=== PATIENT | female | born 1995 | race Caucasian/White ===

== ENCOUNTER 2020-11-05 10:25 | Emergency (ER) | payer BC, SELFPAY ==
[2020-11-05] VITALS (7 sets, daily range): BP systolic 90–111; BP diastolic 49–64; PULSE 74–93; RESP 14–20; TEMP 36.4; O2SAT 100
[2020-11-05 11:14] LABS: Basophils Percent Auto 0.1 % (0.2-1.2); Eosinophils Percent Auto 0.2 % (0-4.4); Hematocrit 34.8 % (37.0-47.0); Hemoglobin 11.7 g/dL (12.0-15.0); Immature Granulocyte Absolute 0.08 K/mm3 (0.00-0.031); Immature Granulocyte Percent A 0.6 % (0-0.5); Lymphocytes Absolute Auto 1.53 K/mm3 (0.9-3.2); Lymphocytes Percent Auto 10.7 % (18.3-44.2); Mean Corpuscular HGB Conc 33.6 g/dl (32-36); Mean Corpuscular Hemoglobin 30.8 pg (26-34); Mean Corpuscular Volume 91.6 fl (80-100); Mean Platelet Volume 11.3 fl (7.4-10.4); Monocytes Absolute Auto 0.5 K/mm3 (0.1-0.6); Monocytes Percent Auto 3.3 % (2.6-8.5); Neutrophils Absolute Auto 12.2 K/mm3 (1.3-6.7); Neutrophils Percent Auto 85.1 % (45.5-73.1); Platelet Count Result 231 k/mm3 (150-375); Red Cell Distribution Width 13.5 % (11.5-14.5); White Blood Count 14.3 K/mm3 (4.5-10.0)
[2020-11-05 11:28] LABS: Alanine Aminotransferase 26 U/L (4-35); Alkaline Phosphatase 55 U/L (38-126); Anion Gap 8 mmol/L (8-16); Aspartate Amino Transferase 27 U/L (14-36); Bilirubin,Total 0.4 mg/dL (0.2-1.3); Blood Urea Nitrogen 6 mg/dL (7-17); Calcium 9.5 mg/dL (8.4-10.2); Carbon Dioxide 22 mmol/L (22-30); Chloride 108 mmol/L (98-107); Estimated CRCL calculation 157 ml/min; Estimated Glomerular Filt Rate > 60; Glucose 88 mg/dL (65-105); Lipase 39 U/L (23-300); Sodium 138 mmol/L (137-145)
[2020-11-05 11:42] LABS: Add Urine Microscopic? YES; Appearance Urine Cloudy (Clear); Bacteria Urine 1+ /hpf; Bilirubin Urine Negative (Negative); Blood Urine Negative (Negative); Color Urine Yellow (Yellow); Glucose Urine UA Negative (Negative); Ketones Urine Negative (Negative); Leukocyte Esterase Ur Negative LEU/UL (Negative); Mucus Urine Few /lpf; Nitrate Urine Negative (Negative); Protein Urine Negative (Negative); RBC Urine 0-2 /hpf (0-2); Specific Grav Ur 1.013 (1.001-1.035); Squamous Epithelial Cell Urine Many /hpf (Few); Urobilinogen Urine Negative mg/dL (<2.0)
--- NOTE | 2020-11-05 12:17 | ED.DIZZY ---
HPI - Dizziness General Chief Complaint: Dizziness Stated Complaint: low blood pressure, dizzy Time Seen by Provider: 11/05/20 12:16 History of Present Illness HPI Narrative: healthy 25 yo female at 18 weeks gestation presents for light headedness. She reports that she has had multiple near syncopal episodes recently. She has never actually fallen or lost consciousness. She was concerned so she began keeping track of her blood pressure. She has been running around 90/50. She reports that her blood pressure is usually on the low side, but this is lower than usual. She has had some nausea and occasional vomiting with this , but mild. She denies any additional symptoms. Related Data Allergies Allergy/AdvReac Type Severity Reaction Status Date / Time No Known Allergies Allergy Verified 11/05/20 12:11 Review of Systems Review of Systems: All systems reviewed & are unremarkable except as noted in HPI and below Constitutional: Constitutional: Denies chills, Denies fever(s) and Denies weakness Cardiovascular: Cardiovascular: Denies chest pain Respiratory: Respiratory: Denies dyspnea Gastrointestinal: Gastrointestinal: Denies abdominal pain, Denies diarrhea, Reports nausea and Reports vomiting Genitourinary: Genitourinary: Denies abnormal vaginal bleeding, Denies hematuria, Denies dysuria and Denies vaginal discharge Musculoskeletal: Musculoskeletal: Denies back pain Neurologic: Denies confusion, Reports dizziness, Denies syncope, Denies numbness and Denies weakness [facility] Social History Social History Gender identity (if verbalized by the patient): Female Exam Const: General: healthy appearing, no acute distress and alert Orientation/consciousness: patient oriented x3 HENMT: Head: normal to inspection Neck: Neck: normal visual inspection and no lymphadenopathy Resp: Effort & Inspection: normal respiratory effort Auscultation: clear to auscultation bilaterally, no rales, no rhonchi and no wheezes Cardio: Jugular venous distension: no JVD Rate: regular rate Rhythm: regular rhythm Heart sounds: no murmurs GI: Inspection: non-distended GI Palp: Yes Soft to palpation and No Tenderness to palpation present (GI) Skin: General skin exam: normal color and no pallor Neuro: General: patient oriented x3 and moves all extremities Speech: normal speech Extrem: General: no edema Psych: Appearance: well kempt Affect: normal affect Course Vital Signs Vital signs: Vital Signs Temperature 36.4 C L 11/05/20 10:51 Pulse Rate 89 11/05/20 10:51 Respiratory Rate 20 11/05/20 10:51 Blood Pressure 111/64 11/05/20 10:51 Pulse Oximetry 100 11/05/20 10:51 Temperature 36.4 C L 11/05/20 10:51 Pulse Rate 83 11/05/20 16:28 Respiratory Rate 17 11/05/20 16:28 Blood Pressure 99/64 L 11/05/20 16:28 Pulse Oximetry 100 11/05/20 16:28 MDM - Dizziness MDM Narrative Medical decision making narrative: SHe has had minimal change with fluids. Orthostatics were positive. She appears well and labs do not point to any particular concern. Case dicussed with Dr. Mcmahon. He feels she is okay for discharge and can see them in clinic. Medical Records Attestation: I reviewed the patient's medical records. Lab Data Attestation: I reviewed the patient's lab results. Result diagrams: 11/05/20 11:04 11/05/20 11:04 Labs: Lab Results 11/05/20 11/05/20 11/05/20 Range/Units 11:04 11:04 11:11 WBC 14.3 H (4.5-10.0) K/mm3 RBC 3.80 L (4.2-5.4) M/mm3 Hgb 11.7 L (12.0-15.0) g/dL Hct 34.8 L (37.0-47.0) % MCV 91.6 (80-100) fl MCH 30.8 (26-34) pg MCHC 33.6 (32-36) g/dl RDW 13.5 (11.5-14.5) % Plt Count 231 (150-375) k/mm3 MPV 11.3 H (7.4-10.4) fl Immature Gran % (Auto) 0.6 H (0-0.5) % Neut % (Auto) 85.1 H (45.5-73.1) % Lymph % (Auto) 10.7 L (18.3-44.
--- NOTE | 2020-11-05 12:29 | ECG_ITS ---
Measurements Intervals [place] Rate: 69 P: 52 LA: 136 QRS: 59 QRSD: 89 T: -7 QT: 392 QTc: 420 Interpretive Statements SINUS RHYTHM BORDERLINE ST-T WAVE ABNORMALITY- INFERIOR LEADS BASELINE WANDER- V5 BORDERLINE ECG Electronically Signed On 11-05-2020 13:56:20 CDT by Gulshan Dias D.O.
[2020-11-05] MEDS: SODIUM CHLORIDE 0.9% IV 1,000 ML 999 ML IV CONT ×3 (12:35→14:46)
== END 2020-11-05 16:29 | disposition home or self-care (01) ==
PROVIDERS: Emergency Medicine; Emergency Provider Emergency Medicine; PCP Obstetrics & Gynecology
DX: O26.892 Other specified pregnancy related conditions, second trimester (principal); R55 Syncope and collapse; Z3A.18 18 weeks gestation of pregnancy
CPT/HCPCS: 36415; 80053; 81001; 83690; 85025; 93005; 96360; 96361; 99283; J7030

== ENCOUNTER 2021-03-25 18:06 | Outpatient (CLI) | payer BC, SELFPAY ==
[2021-03-25 18:57] LABS: Basophils Percent Auto 0.2 % (0.2-1.2); Eosinophils Percent Auto 0.3 % (0-4.4); Hemoglobin 12.1 g/dL (12.0-15.0); Immature Granulocyte Absolute 0.06 K/mm3 (0.00-0.031); Immature Granulocyte Percent A 0.5 % (0-0.5); Lymphocytes Absolute Auto 1.61 K/mm3 (0.9-3.2); Mean Corpuscular HGB Conc 33.6 g/dl (32-36); Mean Corpuscular Hemoglobin 32.6 pg (26-34); Mean Platelet Volume 12.6 fl (7.4-10.4); Monocytes Absolute Auto 0.6 K/mm3 (0.1-0.6); Monocytes Percent Auto 4.9 % (2.6-8.5); Neutrophils Absolute Auto 9.2 K/mm3 (1.3-6.7); Neutrophils Percent Auto 80.1 % (45.5-73.1); Platelet Count Result 142 k/mm3 (150-375); Red Blood Count 3.71 M/mm3 (4.2-5.4); Red Cell Distribution Width 12.9 % (11.5-14.5); White Blood Count 11.5 K/mm3 (4.5-10.0)
[2021-03-25 19:07] LABS: Add Urine Microscopic? YES; Appearance Urine Cloudy (Clear); Bacteria Urine Trace /hpf; Bilirubin Urine Negative (Negative); Blood Urine Negative (Negative); Color Urine Yellow (Yellow); Glucose Urine UA Negative (Negative); Ketones Urine Trace mg/dL (Negative); Leukocyte Esterase Ur Negative LEU/UL (NEGATIVE); Mucus Urine Rare /lpf; Nitrate Urine Negative (Negative); Protein Urine Negative (Negative); RBC Urine 0-2 /hpf (0-2); Squamous Epithelial Cell Urine Many /hpf (Few); Urobilinogen Urine Negative mg/dL (<2.0); WBC Urine 0-3 /hpf (0-3)
[2021-03-25 19:19] VITALS: PULSE 80
[2021-03-25 19:27] LABS: Alanine Aminotransferase 21 U/L (4-35); Albumin Level 3.6 g/dL (3.5-5.1); Alkaline Phosphatase 118 U/L (38-126); Anion Gap 9 mmol/L (8-16); Aspartate Amino Transferase 21 U/L (14-36); Bilirubin,Total 0.3 mg/dL (0.2-1.3); Blood Urea Nitrogen 11 mg/dL (7-17); Calcium 9.2 mg/dL (8.4-10.2); Carbon Dioxide 19 mmol/L (22-30); Chloride 107 mmol/L (98-107); Estimated Glomerular Filt Rate > 60; Glucose 98 mg/dL (65-110); Potassium 3.8 mmol/L (3.4-5.0); Sodium 135 mmol/L (137-145); Uric Acid 5.4 mg/dL (2.5-7.5)
[2021-03-25 19:33] LABS: Creatinine Urine 85.3 mg/dL
[2021-03-25 19:56] LABS: Total Protein Urine Random < 5 mg/dL; Ur Ttl Prot Creatinine Ratio < 0.06 mg/mg (0-0.20)
== END 2021-03-25 20:25 | disposition home or self-care (01) ==
PROVIDERS: PCP Obstetrics & Gynecology; Visit Provider Obstetrics & Gynecology
DX: O13.9 Gestational [pregnancy-induced] hypertension without significant proteinuria, unspecified trimester (principal); Z3A.00 Weeks of gestation of pregnancy not specified
CPT/HCPCS: 36415; 59025; 80053; 81001; 82570; 84156; 84550; 85025; 87086

== ENCOUNTER 2021-04-03 14:01 | Outpatient (RCR) | payer BC, SELFPAY ==
[2021-03-18 19:25] VITALS: BP 124/69; PULSE 84
[2021-03-28 09:59] LABS: Basophils Percent Auto 0.1 % (0.2-1.2); Eosinophils Percent Auto 0.3 % (0-4.4); Hematocrit 34.7 % (37.0-47.0); Immature Granulocyte Absolute 0.04 K/mm3 (0.00-0.031); Immature Granulocyte Percent A 0.4 % (0-0.5); Lymphocytes Absolute Auto 1.18 K/mm3 (0.9-3.2); Lymphocytes Percent Auto 11.4 % (18.3-44.2); Mean Corpuscular HGB Conc 34.6 g/dl (32-36); Mean Corpuscular Hemoglobin 32.4 pg (26-34); Mean Corpuscular Volume 93.8 fl (80-100); Mean Platelet Volume 12.4 fl (7.4-10.4); Monocytes Absolute Auto 0.3 K/mm3 (0.1-0.6); Monocytes Percent Auto 3.2 % (2.6-8.5); Neutrophils Absolute Auto 8.8 K/mm3 (1.3-6.7); Neutrophils Percent Auto 84.6 % (45.5-73.1); Platelet Count Result 131 k/mm3 (150-375); Red Cell Distribution Width 12.8 % (11.5-14.5); White Blood Count 10.4 K/mm3 (4.5-10.0)
[2021-03-28 10:13] LABS: Alanine Aminotransferase 25 U/L (4-35); Albumin Level 3.3 g/dL (3.5-5.1); Alkaline Phosphatase 107 U/L (38-126); Anion Gap 8 mmol/L (8-16); Aspartate Amino Transferase 25 U/L (14-36); Bilirubin,Total 0.5 mg/dL (0.2-1.3); Blood Urea Nitrogen 10 mg/dL (7-17); Calcium 8.9 mg/dL (8.4-10.2); Carbon Dioxide 21 mmol/L (22-30); Chloride 107 mmol/L (98-107); Estimated Glomerular Filt Rate > 60; Glucose 128 mg/dL (65-110); Potassium 3.7 mmol/L (3.4-5.0); Sodium 136 mmol/L (137-145); Uric Acid 5.5 mg/dL (2.5-7.5)
[2021-03-28 10:50] VITALS: BP 114/75; PULSE 93
[2021-03-31 17:45] VITALS: BP 132/72; PULSE 88
--- NOTE | ~2021-04-03 | US_ITS ---
US OB BPP wo non-stress DATE: 03/31/2021 17:49 INDICATION: Maternal hypertension TECHNIQUE: Real-time imaging and Doppler analysis COMPARISON: 03/28/2021 obstetrical ultrasound with biophysical profile FINDINGS: Live wong intrauterine gestation, fetus in longitudinal lie, vertex presentation, with heart rate 115 bpm. Fundal placenta. Subjectively normal amount of amniotic fluid. BIOPHYSICAL PROFILE reported by photo optics technician: breathin out of 2 movement: 2 out of 2 tone: 2 out of 2 Amniotic fluid pocket: 2 out of 2 Total score: 8 out of 8 IMPRESSION: Normal biophysical profile score of 8 out of 8 Reviewed, dictated and finalized at [facility]. Reviewed, dictated and finalized at location A.
--- NOTE | ~2021-04-03 | US_ITS ---
EXAMINATION: US OB BPP wo non-stress EXAM DATE: 03/28/2021 10:19 INDICATION: Elevated BP's . 3rd trimester. TECHNIQUE: Pelvic obstetrical transabdominal sonogram was performed by a technologist. There are mu ltiple grayscale and Doppler images available for interpretation. There are no earlier studies of th is gestation for comparison. FINDINGS: There is a single fetus identified in vertex presentation with a heart rate of 122 beats pe r minute. The placenta is located in the fundal position. There is no sonographic evidence of retrop lacental hemorrhage identified. BIOPHYSICAL PROFILE (performed by the technologist) breathing (30 sec sustained breathing in 30 minutes): 2 out of 2 movement (3 gross body movements in 30 minutes): 2 out of 2 tone (one episode of roqtufn-iwabthoxo-xlqvnjh limb movement): 2 out of 2 Amniotic fluid pocket (2 cm): 2 out of 2 Total score: 8 out of 8 IMPRESSION: 1. Single fetus with heart rate of 122 bpm. 2. Normal biophysical profile score of 8 out of 8. Reviewed, dictated and finalized at location A.
[2021-04-03 15:28] VITALS: BP 118/73; PULSE 87
== END 2021-04-13 10:37 | disposition home or self-care (01) ==
LOC: ANHOBOP 14:01
PROVIDERS: PCP Obstetrics & Gynecology; Visit Provider Obstetrics & Gynecology
DX: O36.8330 Maternal care for abnormalities of the fetal heart rate or rhythm, third trimester, not applicable or unspecified (principal); Z3A.37 37 weeks gestation of pregnancy; Z3A.38 38 weeks gestation of pregnancy; Z3A.39 39 weeks gestation of pregnancy
CPT/HCPCS: 36415; 59025; 76819; 80053; 84550; 85025

== ENCOUNTER 2021-04-05 17:06 | Inpatient (IN) | payer BC, SELFPAY ==
[2021-04-05] VITALS (10 sets, daily range): BP systolic 116–125; BP diastolic 56–83; PULSE 75–88; TEMP 36.6; BMI 28.6
--- NOTE | 2021-04-05 17:06 | LDADM ---
This patient, Eduardo West, was admitted to Labor/Delivery/Recovery 108 on 04/05/21 at 17:06. Plans for labor, pain management and were discussed with patient. Patient/family oriented to hospital policies and general routines including ID bracelet, bed and alarms, visiting hours, pain management, procedures, bathroom and other care routines, personal items, smoking policy, room service/diet and guest tray routines, security routines, and visiting hours. Patient/Family are encouraged to report perceived risks to care and to ask questions if they do not understand what they are told or what they should do. See OBIX for further documentation.
[2021-04-05 17:40] LABS: Basophils Percent Auto 0.1 % (0.2-1.2); Eosinophils Percent Auto 0.3 % (0-4.4); Hematocrit 38.3 % (37.0-47.0); Hemoglobin 13.2 g/dL (12.0-15.0); Immature Granulocyte Absolute 0.04 K/mm3 (0.00-0.031); Immature Granulocyte Percent A 0.3 % (0-0.5); Lymphocytes Absolute Auto 1.72 K/mm3 (0.9-3.2); Lymphocytes Percent Auto 14.7 % (18.3-44.2); Mean Corpuscular HGB Conc 34.5 g/dl (32-36); Mean Corpuscular Hemoglobin 32.8 pg (26-34); Mean Corpuscular Volume 95.3 fl (80-100); Mean Platelet Volume 12.6 fl (7.4-10.4); Monocytes Absolute Auto 0.6 K/mm3 (0.1-0.6); Monocytes Percent Auto 4.9 % (2.6-8.5); Neutrophils Absolute Auto 9.3 K/mm3 (1.3-6.7); Neutrophils Percent Auto 79.7 % (45.5-73.1); Platelet Count Result 150 k/mm3 (150-375); Red Blood Count 4.02 M/mm3 (4.2-5.4); Red Cell Distribution Width 13.2 % (11.5-14.5); White Blood Count 11.7 K/mm3 (4.5-10.0)
[2021-04-05] MEDS: DINOPROSTONE 10 MG VAG INSERT VAGINAL (17:40)
[2021-04-05 17:56] LABS: Alanine Aminotransferase 29 U/L (4-35); Alkaline Phosphatase 140 U/L (38-126); Anion Gap 6 mmol/L (8-16); Aspartate Amino Transferase 26 U/L (14-36); Bilirubin,Total 0.4 mg/dL (0.2-1.3); Blood Urea Nitrogen 14 mg/dL (7-17); Calcium 9.1 mg/dL (8.4-10.2); Carbon Dioxide 22 mmol/L (22-30); Chloride 107 mmol/L (98-107); Estimated CRCL calculation 126 ml/min; Estimated Glomerular Filt Rate > 60; Glucose 103 mg/dL (65-110); Sodium 135 mmol/L (137-145); Uric Acid 5.9 mg/dL (2.5-7.5)
[2021-04-05] MEDS: LACTATED RINGERS 1,000 ML 125 ML IV CONT (18:14)
[2021-04-05] MEDS: AMPICILLIN 2 GM/NS 100 ML 2 GM/100 ML BAG IVPB (18:15)
--- NOTE | 2021-04-05 20:54 | WPDANESEPP ---
Anes - Eval Pre Procedure Procedure: Labor epidural Date/Time: 04/05/21 20:54 Surgeon: Mary Preop Diagnosis: Abd pain with contractions Pre Op Diagnosis: Induction of Labor Patient Data Age: 25 Gender: F Height: 1.65 m Weight: 78 kg Last Vital Signs Pulse 75 04/05/21 19:45 BP 120/74 04/05/21 19:45 Allergies Allergy/AdvReac Type Severity Reaction Status Date / Time No Known Allergies Allergy Verified 11/05/20 12:11 Home Medications Medication Instructions Recorded Confirmed Type PNV cmb#95-ferrous fumarate-FA 1 tablet PO DAILY 03/18/21 04/05/21 History [] doxylamine succinate [Unisom 25 mg PO HS PRN 03/18/21 04/05/21 History (doxylamine)] Laboratory Tests 04/05/21 04/05/21 04/05/21 17:24 17:24 17:24 WBC 11.7 K/mm3 H K/mm3 (4.5-10.0) RBC 4.02 M/mm3 L M/mm3 (4.2-5.4) Hgb 13.2 g/dL g/dL (12.0-15.0) Hct 38.3 % % (37.0-47.0) MCV 95.3 fl fl (80-100) MCH 32.8 pg pg (26-34) MCHC 34.5 g/dl g/dl (32-36) RDW 13.2 % % (11.5-14.5) Plt Count 150 k/mm3 k/mm3 (150-375) MPV 12.6 fl H fl (7.4-10.4) Immature Gran % (Auto) 0.3 % % (0-0.5) Neut % (Auto) 79.7 % H % (45.5-73.1) Lymph % (Auto) 14.7 % L % (18.3-44.2) [place] % (Auto) 4.9 % % (2.6-8.5) Eos % (Auto) 0.3 % % (0-4.4) Baso % (Auto) 0.1 % L % (0.2-1.2) Lymph # (Auto) 1.72 K/mm3 K/mm3 (0.9-3.2) [place] # (Auto) 0.6 K/mm3 K/mm3 (0.1-0.6) Eos # (Auto) 0.0 K/mm3 K/mm3 (0-0.3) Baso # (Auto) 0.0 K/mm3 K/mm3 (0.0-0.1) Abs Immat Gran (auto) 0.04 K/mm3 H K/mm3 (0.00-0.031) Absolute Neuts (auto) 9.3 K/mm3 H K/mm3 (1.3-6.7) Absolute Nucleated RBC 0.0 K/mm3 K/mm3 (0.0-0.012) Nucleated RBC % 0.0 % % (0.0-0.2) Sodium Potassium Chloride Carbon Dioxide Anion Gap BUN Creatinine Estim Creat Clear Calc Estimated GFR Glucose Uric Acid Calcium Total Bilirubin AST ALT Alkaline Phosphatase Total Protein Albumin RPR Pending Blood Type A Positive Antibody Screen Negative 04/05/21 17:24 WBC RBC Hgb Hct MCV MCH MCHC RDW Plt Count MPV Immature Gran % (Auto) Neut % (Auto) Lymph % (Auto) [place] % (Auto) Eos % (Auto) Baso % (Auto) Lymph # (Auto) [place] # (Auto) Eos # (Auto) Baso # (Auto) Abs Immat Gran (auto) Absolute Neuts (auto) Absolute Nucleated RBC Nucleated RBC % Sodium 135 mmol/L L mmol/L (137-145) Potassium 4.0 mmol/L mmol/L (3.4-5.0) Chloride 107 mmol/L mmol/L (98-107) Carbon Dioxide 22 mmol/L mmol/L (22-30) Anion Gap 6 mmol/L L mmol/L (8-16) BUN 14 mg/dL mg/dL (7-17) Creatinine 0.60 mg/dL L mg/dL (0.7-1.0) Estim Creat Clear Calc 126 ml/min ml/min Estimated GFR > 60 (59 - ) Glucose 103 mg/dL mg/dL (65-110) Uric Acid 5.9 mg/dL mg/dL (2.5-7.5) Calcium 9.1 mg/dL mg/dL (8.4-10.2) Total Bilirubin 0.4 mg/dL mg/dL (0.2-1.3) AST 26 U/L U/L (14-36) ALT 29 U/L U/L (4-35) Alkaline Phosphatase 140 U/L H U/L (38-126) Total Protein 7.0 g/dL g/dL (6.3-8.2) Albumin 4.0 g/dL g/dL (3.5-5.1) RPR Blood Type Antibody Screen Patient hx anesthesia problems: none Family hx anesthesia problems: none Results Review: All pre-operative results and documents have been reviewed as part of the pre-operative evaluation. PMFSH Past Medical History Medical History (Re
[2021-04-05] MEDS: ZOLPIDEM TARTRATE (*CRX) 5 MG TABLET PO (22:40)
[2021-04-05] MEDS: AMPICILLIN 1 GM/NS 50 ML 1 GM/50 ML BAG IVPB (22:40)
[2021-04-06] VITALS (130 sets, daily range): BP systolic 70–147; BP diastolic 43–95; PULSE 63–140; RESP 16; TEMP 36.8–38.8; O2SAT 97–100
[2021-04-06] MEDS: AMPICILLIN 1 GM/NS 50 ML 1 GM/50 ML BAG IVPB ×3 (03:42→11:45)
[2021-04-06] MEDS: ACETAMINOPHEN 500 MG TABLET 1000 MG PO (05:14)
[2021-04-06] MEDS: OXYTOCIN 30 UNITS/NS 500 ML 30 UNITS/500 ML BAG 6 UNITS IV CONT (05:15)
[2021-04-06] MEDS: LACTATED RINGERS 1,000 ML 125 ML IV CONT ×2 (05:16→11:46)
[2021-04-06 09:38] LABS: Rapid Plasma Reagin Non-Reactive (NonReactive)
[2021-04-06] MEDS: LACTATED RINGERS 1,000 ML 999 ML IV CONT (09:50)
[2021-04-06] MEDS: METHYLERGONOVINE MALEATE 0.2 MG/ML VIAL IM (16:50)
--- NOTE | 2021-04-06 17:05 | WPDOBADMIT ---
Obstetrics - Admit Note Admission Note: record reviewed. No pertinent additions to the history and/or any subsequent changes in the physical findings that are not consistent with the expected course of the were found. Additions to the history and/or subsequent changes in the physical findings follow. None.
--- NOTE | 2021-04-06 17:05 | WPDHPUPDATE1 ---
History and Physical Update Update Date/Time: 04/06/21 17:05 History and Physical has been reviewed, including an updated exam of the patient. There are NO changes in the patient's condition. Risks, benefits, and alternatives have been discussed and questions answered. Patient agrees to proceed with procedure.
--- NOTE | 2021-04-06 17:05 | PM.OBPRVD ---
OB - Delivery Note Procedure Route of delivery: Episiotomy description: None Laceration Description: Vaginal - 2nd Degree Delivery repair: chromic Specimen: No Quantitative Blood Loss (ml): 650 Anesthesia type: Epidural Disposition: floor Narrative: Patient prepped and draped in usual manner for this procedure. Maternal expulsive efforts readily delivered vertex rest of baby without difficulty. Cord clamped cut placenta delivered spontaneously. Uterus was well contracted. Bilateral sulcal tears were noted and rendered hemostatic using 2 0 chromic running interlocking manner bilaterally to approximate these separations. Another 2 0 chromic was used to approximate the vaginal tissue closer to the perineum with good approximation hemostasis noted. Uterus was well contracted though did take 1 dose of Methergine. At this point seizure was considered terminated patient are procedure well the immediate postop condition mother baby were both excellent. 2G of Ancef were given for low-grade maternal temperature. [place] Baby Weeks of gestation at delivery: 40 Infant gender: Female Weight (pounds): 7 Weight (ounces): 14 score one minute: 8 score five minutes: 9
[2021-04-06] MEDS: OXYTOCIN 30 UNITS/NS 500 ML 30 UNITS/500 ML BAG 125 UNITS IV CONT (17:09)
[2021-04-06] MEDS: ceFAZolin 2 GM/D5W 50 ML 2 GM/50 ML BAG IVPB (17:27)
[2021-04-06] MEDS: IBUPROFEN 600 MG TABLET PO (19:19)
--- NOTE | 2021-04-06 20:06 | OBPPTRN ---
Patient transferred to post room #290 via wheelchair. Support person, Vidal, present. Oriented to unit, room, information board, rooming in, admission packet and security measures. Patient verbalizes understanding.
[2021-04-07 00:30] VITALS: BP 107/70; PULSE 76; RESP 16; TEMP 36.8; O2SAT 98
[2021-04-07] MEDS: IBUPROFEN 600 MG TABLET PO ×3 (01:27→16:55)
[2021-04-07 04:30] VITALS: BP 105/64; PULSE 84; RESP 16; TEMP 36.7; O2SAT 99
[2021-04-07] MEDS: ACETAMINOPHEN 325 MG TABLET 650 MG PO ×3 (04:49→21:19)
[2021-04-07 05:53] LABS: Hematocrit 29.9 % (37.0-47.0); Hemoglobin 10.1 g/dL (12.0-15.0)
--- NOTE | 2021-04-07 07:37 | P.DS_ITS ---
DS: Admitting Diagnosis Discharge Date 04/08/2021 Admitting Diagnosis rpegnancy OB - DS: Summary OB Procedures : None OB Procedures Intrapartum: Spontaneous Vag Delivery OB Procedures: : None Time Spent with Patient Time attestation: Total time spent providing and/or coordinating discharge services: DS: Data Data Completed and Pending Labs on day of discharge: Labs from last 24 hours 04/07/21 04/05/21 04:38 17:24 Hgb 10.1 L D Hct 29.9 L RPR Non-reactive Discharge Plan Discharge Discharging Clinician: Aleksandr Hernandez Patient Disposition: Home, Self-Care Activity: as tolerated Diet: as tolerated Patient Instructions: Antibiotic Form Stand Alone Forms: General Discharge Information Follow-up/Referrals: Aleksandr Hernandez MD [Physician] - 3 Weeks Discharge Medications: New ibuprofen 600 mg Tablet 600 mg PO Q6H PRN (Reason: Cramping) Qty: 30 RF: 0 Continued PNV cmb#95-ferrous fumarate-FA [] 28 mg iron- 800 mcg Tablet 1 tablet PO DAILY RF: 0 Unisom (doxylamine) 25 mg Tablet 25 mg PO HS PRN (Reason: Nausea) RF: 0 Date of admission: 04/05/21 17:06 Primary Care Provider: PHYSICIAN,COMMERCIAL COLLECTIONS SPECIALIST Admitting Provider: Aleksandr Hernandez Attending physician on admission: Aleksandr Hernandez Condition: Stable
[2021-04-07 08:55] VITALS: BP 112/72; PULSE 86; RESP 18; TEMP 36.6; O2SAT 99
--- NOTE | 2021-04-07 09:08 | WPDANLDPN2 ---
Anes-Prog Note L&D Date/Time: 04/07/21 09:08 Comfortable throughout: labor and delivery Neuraxial method: epidural Epidural/Spinal procedure site: clean & non-tender Neuro status: Neuro function grossly intact. Cardiovascular status: normal Respiratory status: normal Airway patency: baseline Mental status: baseline Post-Op hydration status: normal Vital Signs: Last Vital Signs Temp 36.7 C 04/07/21 04:30 Pulse 84 04/07/21 04:30 Resp 16 04/07/21 04:30 BP 105/64 04/07/21 04:30 Pulse Ox 99 04/07/21 04:30 Pain score (VAS): 0 I/O: Intake & Output 04/06/21 04/07/21 04/07/21 23:59 07:59 15:59 Intake Total 500 Output Total 1350 Balance -850 Post-procedural complaints: none Patient feedback: Patient satisfied with anesthetic care.
--- NOTE | 2021-04-07 09:50 | PC.NURSE ---
Mother called out for assist with feeding, reporting is sleepy at breast with some tenderness with feeding. Infant is able to freely thrust tongue past gum ridge and flange both lips. Skin is intact on both nipples, slight redness and a small blister to left nipple noted. Reviewed feeding cues, frequencies, duration of feedings, feeding elimination flow sheet, and signs of adequate intake. Demonstrated stimulation techniques to wake for feeding. Assisted with infant to breast. Reviewed positioning/alignment in cross cradle, holding breast in ?U? hold and guided asymmetrical latch on. Reviewed rational for each. able to latch correctly within a few attempts. Infant nursed sleepily in bursts followed with long pausing and occasional swallowing noted, some pausing noted. Reviewed signs of a correct latch, effective nursing and suck swallow ratio. Suggested mother stimulate while feeding to increase stimulation for milk supply, for increased intake and to assist with maintaining deep latch. would slip to shallow latch causing tenderness. Demonstrated how to adjust latch more deeply while feeding if needed. Mother reports she can feel the difference in latch with less tenderness. Nipple care reviewed of lanolin after feedings, warm compresses as needed. Instructed mother to call out for RN assistance if she is unable to latch infant for feeding or she has discomfort with nursing. Instructed feeding should be initiated three hours from start of last feeding or if feeding cues are noted before. Mother voiced understanding of information shared.
[2021-04-07] MEDS: DOCUSATE SODIUM 100 MG CAPSULE PO ×2 (10:21→16:55)
[2021-04-07] MEDS: MULTIVIT/MIN/PREN/FOL AC/IRON TABLET 1 TAB PO (10:21)
[2021-04-07 12:50] VITALS: BP 114/68; PULSE 83; RESP 18; TEMP 36.8; O2SAT 98
--- NOTE | 2021-04-07 14:15 | PC.NURSE ---
Mother called out for assessment of latch. Mother has independently put to right breast in football. was latched correctly. Infant nursed sleepily in bursts followed with long pausing and occasional swallowing noted, some pausing noted. Reviewed signs of a correct latch, effective nursing and suck swallow ratio. Suggested mother stimulate while feeding to increase stimulation for milk supply, for increased intake and to assist with maintaining deep latch. would slip to shallow latch causing tenderness. Demonstrated how to adjust latch more deeply while feeding if needed. more awake with increased bursts of nursing than previous feeding observed. Instructed mother to call out for RN assistance if she is unable to latch for feeding or she has discomfort with nursing. Instructed feeding should be initiated three hours from start of last feeding or if feeding cues are noted before. Mother voiced understanding of information shared.
[2021-04-07 16:55] VITALS: BP 121/71; PULSE 79; RESP 12; TEMP 36.9; O2SAT 98
[2021-04-07 21:00] VITALS: BP 139/84; PULSE 79; RESP 16; TEMP 37; O2SAT 99
[2021-04-08] MEDS: IBUPROFEN 600 MG TABLET PO ×2 (01:02→07:01)
[2021-04-08] MEDS: ACETAMINOPHEN 325 MG TABLET 650 MG PO ×2 (04:30→13:17)
[2021-04-08 07:00] VITALS: PULSE 79; RESP 16; O2SAT 99
[2021-04-08] MEDS: DOCUSATE SODIUM 100 MG CAPSULE PO (07:01)
[2021-04-08] MEDS: MULTIVIT/MIN/PREN/FOL AC/IRON TABLET 1 TAB PO (07:02)
--- NOTE | 2021-04-08 08:30 | PC.NURSE ---
Mother called out for assist with feeding, reporting is sleepy and not waking for feeding. Demonstrated stimulation techniques, infant awake within a few minutes. Mother states was on the bili blanket during the night, which mother feels made her nipple sore due to wrapped in bili blanket while feeding. Reviewed positioning/alignment in football, holding breast in ?C? hold and guided asymmetrical latch on. Reviewed rational for each. able to latch correctly within a few attempts. Infant nursed eagerly with steady draws and occasional swallowing noted, some pausing noted. Reviewed signs of a correct latch, effective nursing and suck swallow ratio. Suggested mother stimulate while feeding to increase stimulation for milk supply, for increased intake and to assist with maintaining deep latch. was able to maintain latch without discomfort to mother. I Demonstrated how to adjust latch more deeply while feeding if needed. Infant more awake and eagerly feeding than previous day. Nipple care reviewed of lanolin after feedings, warm compresses as needed. Instructed mother to call out for RN assistance if she is unable to latch for feeding or she has discomfort with nursing. Instructed feeding should be initiated three hours from start of last feeding or if feeding cues are noted before. Mother voiced understanding of information shared. Mother plans on discharge later this day. Observed mother is able to independently latch with appropriate positioning/alignment. Infant eagerly latches on first attempt with long rhythmical draws and frequent swallowing noted, needing stimulation to keep awake for effective feeding. She denies any nipple discomfort, is feeding as required and waking to feed if needed. Infant has had at least 8 effective feedings in the past 24 hours, and is currently meeting outcomes for weight, output, jaundice and feeding frequencies. Mother states she feels confident to continue effective at home. Reviewed transition to breast milk, signs of adequate intake, and engorgement/relief. Instructed to call ICP if intake/output less than required. Reviewed regular medications mother is taking. Information provided per [place]. Reviewed community resources on the [facility] website and in the Mom/Baby guide. Information on outpatient services provided. Mother has no further questions at this time. Instructed feeding should be initiated three hours from start of last feeding or if feeding cues are noted before until seen by ICP. Mother voiced understanding of information shared.
[2021-04-08 08:55] VITALS: BP 118/74; PULSE 75; RESP 16; TEMP 36.9; O2SAT 99
--- NOTE | 2021-04-08 14:45 | PC.NURSE ---
Patient viewed the discharge video Mother & Baby Care, The First Two Weeks . Patient was given the opportunity and encouraged to ask questions. Patient verbalized understanding of information shared and has been given the mother/baby guide for home reference.
[2021-04-09 10:56] VITALS: BP 122/70; PULSE 83; RESP 20; TEMP 36.8; O2SAT 100
--- NOTE | 2021-04-18 07:43 | PM.OBDSVD ---
DS: Admitting Diagnosis Discharge Date 04/08/21 Admitting Diagnosis OB - DS: Summary OB Procedures : None OB Procedures Intrapartum: Spontaneous Vag Delivery OB Procedures: : None Time Spent with Patient Time attestation: Total time spent providing and/or coordinating discharge services: Discharge Plan Discharge Discharging Clinician: Aleksandr Hernandez Patient Disposition: Home, Self-Care Activity: as tolerated Diet: as tolerated Discharge Instructions: Education: Mom and Baby Guide Given to: Follow-Up: Call your delivering provider's office for an appointment to be seen in: 3 weeks Mom and baby should come to the [facility] for the follow-up appointment. Appointment Date/Time: March at 10:00 a.m. What to expect at your follow-up visit: Blood Pressure Check Physical Assessment Call [phone] if you are unable to keep your appointment time. BREAST CARE: * Wear a snug supportive bra. * For engorgement discomfort: Breast Feeding: * Apply warm moist washcloths * Express milk as needed to relieve engorgement * Wear loose clothing * For sore nipples: * Identify correct latch-on * Apply warm moist washcloths before and after nursing * Air dry nipples after nursing * May apply Lansinoh cream to nipples EPISIOTOMY/PERINEAL CARE: * Until bleeding stops, use your bella bottle after urinating * Change your pad frequently throughout the day * You may take sitz baths several times a day (fill your bathtub with warm water and soak for 20 minutes.) Do NOT bathe in the water * No tub baths until seen by your physician - You may shower ACTIVITY: * Rest as much as possible. * Do not exercise or lift anything heavier than your baby (such as laundry or other children.) * Avoid stairs or driving as much as possible. * Do not put anything into the vagina. No douching, tampons, or sexual activity until seen by physician. NOTIFY PHYSICIAN IF YOU HAVE ANY QUESTIONS OR IF ANY OF THE FOLLOWING SYMPTOMS OCCUR: * If your perineum becomes red, swollen, or more painful than what you have experienced in the hospital. * If your vaginal bleeding becomes foul smelling. * If your vaginal bleeding becomes more heavy than a period or if your bleeding changes from pink to bright red. However, you may pass an occasional walnut-sized clot once or twice for the first week . * If you experience a sharp, shooting pain in you calves. * If you discover a hard, reddened area on your breast or if you experience flu-like symptoms. DIET: * Eat regular, well-balanced meals. * Drink plenty of fluids daily. If , drink to thirst. Patient Instructions: Antibiotic Form Stand Alone Forms: General Discharge Information Follow-up/Referrals: Aleksandr Hernandez MD [Physician] - 3 Weeks Discharge Medications: New ibuprofen 600 mg Tablet 600 mg PO Q6H PRN (Reason: Cramping) Qty: 30 RF: 0 Continued PNV cmb#95-ferrous fumarate-FA [] 28 mg iron- 800 mcg Tablet 1 tablet PO DAILY RF: 0 Unisom (doxylamine) 25 mg Tablet 25 mg PO HS PRN (Reason: Nausea) RF: 0 Date of admission: 04/05/21 17:06 Primary Care Provider: PHYSICIAN,PIPE INSULATOR Admitting Provider: Aleksandr Hernandez Attending physician on admission: Aleksandr Hernandez Condition: Stable
== END 2021-04-08 16:03 | disposition home or self-care (01) | DRG 807 ==
LOC: ANHLDR 17:09 → ANHOB2 04-06 22:05
PROVIDERS: Admitting Provider Obstetrics & Gynecology; Visit Provider Obstetrics & Gynecology
DX: O13.4 Gestational [pregnancy-induced] hypertension without significant proteinuria, complicating childbirth (principal); Z37.0 Single live birth; O70.1 Second degree perineal laceration during delivery; O99.824 Streptococcus B carrier state complicating childbirth; Z3A.40 40 weeks gestation of pregnancy
CPT/HCPCS: 36415; 80053; 84550; 85014; 85018; 85025; 86592; 86850; 86900; 86901; A9270; J0131; J0290; J0690; J2210; J2590; J2795; J7120

== ENCOUNTER → 2022-12-17 10:40 | Outpatient (CLI) | payer BC, SELFPAY ==
--- NOTE | ~2022-12-17 | XR_ITS ---
XR wrist RT min 3V DATE: 12/17/2022 10:59 INDICATION: Acute right wrist pain. Fall one week ago. TECHNIQUE: 4 views of right wrist COMPARISON: None FINDINGS: Several small bony densities are noted at the posterolateral aspect of the carpal area, sabrina earing relatively smooth, likely chronic, possibly old fracture fragments. Otherwise no recent fracture or dislocation, periosteal reaction or bone destruction is detected. IMPRESSION: Small bony densities or calcifications at the posterolateral aspect of the wrist, likely chronic; otherwise negative Reviewed, dictated and finalized at location B.
== END ==
PROVIDERS: PCP Physician Assistant; Visit Provider Physician Assistant
DX: M25.531 Pain in right wrist (principal)
CPT/HCPCS: 73110

== ENCOUNTER 2023-04-20 19:53 | Emergency (ER) | payer BC, SELFPAY ==
[2023-04-20] VITALS (15 sets, daily range): BP systolic 96–125; BP diastolic 58–80; PULSE 69–93; RESP 16–25; TEMP 36.2–36.4; O2SAT 99–100
[2023-04-20 20:16] LABS: Basophils Percent Auto 0.2 % (0.2-1.2); Eosinophils Percent Auto 0.3 % (0-4.4); Hematocrit 42.9 % (37.0-47.0); Hemoglobin 14.4 g/dL (12.0-15.0); Immature Granulocyte Absolute 0.04 K/mm3 (0.00-0.031); Immature Granulocyte Percent A 0.3 % (0-0.5); Lymphocytes Absolute Auto 2.82 K/mm3 (0.9-3.2); Lymphocytes Percent Auto 21.3 % (18.3-44.2); Mean Corpuscular HGB Conc 33.6 g/dl (32-36); Mean Corpuscular Hemoglobin 30.5 pg (26-34); Mean Corpuscular Volume 90.9 fl (80-100); Mean Platelet Volume 10.6 fl (7.4-10.4); Monocytes Absolute Auto 0.5 K/mm3 (0.1-0.6); Monocytes Percent Auto 3.9 % (2.6-8.5); Neutrophils Absolute Auto 9.8 K/mm3 (1.3-6.7); Platelet Count Result 283 k/mm3 (150-375); Red Blood Count 4.72 M/mm3 (4.2-5.4); Red Cell Distribution Width 12.4 % (11.5-14.5); White Blood Count 13.2 K/mm3 (4.5-10.0)
[2023-04-20 20:28] LABS: Alanine Aminotransferase 28 U/L (6-35); Albumin Level 4.9 g/dL (3.5-5.1); Alkaline Phosphatase 53 U/L (38-126); Anion Gap 13 mmol/L (8-16); Aspartate Amino Transferase 24 U/L (14-36); Bilirubin,Total 0.5 mg/dL (0.2-1.3); Blood Urea Nitrogen 10 mg/dL (7-17); Calcium 9.5 mg/dL (8.4-10.2); Carbon Dioxide 23 mmol/L (22-30); Chloride 103 mmol/L (98-107); Estimated CRCL calculation 143 ml/min; Estimated Glomerular Filt Rate > 60; Glucose 110 mg/dL (65-110); Lipase 60 U/L (23-300); Potassium 3.9 mmol/L (3.4-5.0); Sodium 139 mmol/L (137-145)
--- NOTE | 2023-04-20 20:40 | ED.NAVMDI ---
HPI - Nausea/Vomiting/Diarrhea General Chief complaint: Nausea/Vomiting/Diarrhea Stated complaint: dizzy Time Seen by Provider: 04/20/23 20:20 Source: patient Mode of arrival: ambulatory History of Present Illness HPI Narrative: 27 YEARS OLD WHITE FEMALE 6 WEEKS CAME TO THE EMERGENCY ROOM BECAUSE NAUSEA, INTERMITTENT VOMITING, LIGHTHEADEDNESS, DIZZINESS, TIREDNESS, INCREASED HOURS OF SLEEP STARTED OVER THE LAST 3 DAYS. PATIENT VOMITED ONCE TODAY. PATIENT REPORTS LIGHTHEADEDNESS GET WORSE STANDING WALKING, SLIGHTLY BETTER LAYING DOWN. PATIENT IS 2 PARA 1 0. DID NOT SEE HER OBGYN YET. PATIENT DROPPED OFF BY HER TO THE EMERGENCY ROOM. SHE DENIES ANY RESPIRATORY SYMPTOMS OR SORE THROAT. Related Data Home Medications Medication Instructions Recorded Confirmed vit no.95-ferrous 1 tablet PO DAILY 03/18/21 01/18/23 fumarate 28 mg-folic acid 800 mcg tablet () Allergies Allergy/AdvReac Type Severity Reaction Status Date / Time No Known Allergies Allergy Verified 01/18/23 09:37 Review of Systems Review of Systems: All systems reviewed & are unremarkable except as noted in HPI and below PMFSH Past Medical History Medical History Asthma Disorder of ligament, right wrist Gestational hypertension Over weight and not yet delivered Surgical History Surgical History History of wisdom tooth extraction Family History Family History Father Hypertension Grandparent Diabetes mellitus maternal grandfather Acute myocardial infarction maternal grandfather Brain stem hemorrhage maternal grandfather Breast cancer maternal grandmother paternal grandmother Social History Social History Smoking status: Never smoker Substance use: never Occupation/Education: occupation Additional occupation/education comments: [employer] Gender identity (if verbalized by the patient): Female Spiritual care concerns: No Exam Narrative: GENERAL APPEARANCE: WELL-DEVELOPED, WELL-NOURISHED SKIN: NORMAL COLOR HEAD: NORMOCEPHALIC, NONTRAUMATIC EYES: CLEAR CONJUNCTIVA ENT: OROPHARYNX NORMAL, EARS NORMAL, NOSE NORMAL NECK: SUPPLE, NONTENDER CHEST AND RESPIRATORY: AIRWAY PATENT, NO RESPIRATORY DISTRESS, NO ACCESSORY MUSCLE USE HEART: REGULAR RATE/RHYTHM ABDOMEN: SOFT, NONTENDER, NO ORGANOMEGALY, QUIET BOWEL SOUNDS VASCULAR: NORMAL PERIPHERAL PULSES, NORMAL CAPILLARY REFILL. MUSCULOSKELETAL: NORMAL RANGE OF MOTION, NONTENDER BACK NEUROLOGIC: ALERT AND ORIENTED ?3, CARGO AGENT IS NORMAL TESTED, NO GROSS MOTOR DEFICIT Course Vital Signs Vital signs: Vital Signs Temperature 36.2 C L 04/20/23 19:55 Pulse Rate 88 04/20/23 19:55 Respiratory Rate 16 04/20/23 19:55 Blood Pressure 123/67 04/20/23 19:55 Pulse Oximetry 100 04/20/23 19:55 Oxygen Delivery Room Air 04/20/23 19:55 Temperature 36.3 C L 04/20/23 21:21 Pulse Rate 93 04/20/23 21:21 Respiratory Rate 23 H 04/20/23 21:21 Blood Pressure 104/80 04/20/23 21:20 Pulse Oximetry 100 04/20/23 21:45 Oxygen Delivery Room Air 04/20/23 19:55 MDM - Nausea/Vomiting/Diarrhea MDM Narrative Medical decision making narrative: 27 YEARS OLD WHITE FEMALE PRESENTS WITH NAUSEA AND VOMITING AND GENERAL WEAKNESS PHYSICAL EXAMINATION ABOVE VITAL SIGNS ON ARRIVAL UNREMARKABLE DIFFERENTIAL DIAGNOSIS INCLUDES HYPEREMESIS GRAVIDARUM, ORTHOSTATIC HYPOTENSION, ELECTROLYTE IMBALANCE
[2023-04-20] MEDS: SODIUM CHLORIDE 0.9% IV 1,000 ML 999 ML IV CONT ×2 (20:52→20:53)
[2023-04-20] MEDS: ONDANSETRON INJ 4 MG/2 ML VIAL 8 MG (22:12)
[2023-04-20 22:28] LABS: Appearance Urine Clear (Clear); Bilirubin Urine Negative (Negative); Blood Urine Negative (Negative); Color Urine Yellow (Yellow); Glucose Urine UA Negative (Negative); Ketones Urine Negative (Negative); Leukocyte Esterase Ur Negative LEU/UL (Negative); Nitrate Urine Negative (Negative); Protein Urine Negative (Negative); Urobilinogen Urine 0.2 mg/dL (<2.0); pH Urine 6.5 (5.0-9.0)
[2023-04-20 22:46] LABS: Add Urine Microscopic? NO
== END 2023-04-20 23:06 | disposition home or self-care (01) ==
PROVIDERS: Student in an Organized Health Care Education/Training Program; Emergency Provider Emergency Medicine; PCP Obstetrics & Gynecology
DX: O21.0 Mild hyperemesis gravidarum (principal); O99.511 Diseases of the respiratory system complicating pregnancy, first trimester; J45.909 Unspecified asthma, uncomplicated; Z3A.01 Less than 8 weeks gestation of pregnancy
CPT/HCPCS: 36415; 80053; 81003; 81025; 83690; 85025; 96361; 96374; 99284; J2405; J7030

== ENCOUNTER 2023-04-25 10:54 | Emergency (ER) | payer BC, SELFPAY ==
[2023-04-25 11:09] VITALS: BP 112/71; PULSE 70; RESP 16; TEMP 36.9; O2SAT 100
--- NOTE | 2023-04-25 12:05 | ED.NAVMDI ---
HPI - Nausea/Vomiting/Diarrhea General Chief complaint: Nausea/Vomiting/Diarrhea Stated complaint: sent from OB for fluids-vomiting, 7 weeks preg Time Seen by Provider: 04/25/23 11:56 History of Present Illness HPI Narrative: Patient is 27 year old female, , approximately 7 weeks by LMP here with nausea and vomiting. Patient notes that last week she was seen here for similar, found to be dehydrated with positive orthostatic vital signs and had improved symptoms after receiving IV fluids and Zofran. She notes she has had continued vomiting, it typically occurs in the evening. The nausea and vomiting is associated with some lightheadedness and notes that she does experience some dizziness and vision lagging which seems to make her vomiting worse. She did follow-up with her OBGYN today who prescribed her Reglan and advised to come into the emergency department for IV hydration. Patient states she vomited several times throughout the night last night, and is unable to tolerate even a few sips of water at this point. She notes some upper abdominal discomfort with vomiting but no pelvic cramping or pain, no vaginal bleeding or discharge. She notes that her OBGYN is currently trying to set up home IV fluid infusions. She denies any fever chills. She does have a history of asthma which is well controlled at this point. Related Data Home Medications Medication Instructions Recorded Confirmed vit no.95-ferrous 1 tablet PO DAILY 03/18/21 04/25/23 fumarate 28 mg-folic acid 800 mcg tablet () Allergies Allergy/AdvReac Type Severity Reaction Status Date / Time No Known Allergies Allergy Verified 04/25/23 09:53 Review of Systems Review of Systems: All systems reviewed & are unremarkable except as noted in HPI and below PMFSH Past Medical History Medical History Asthma Disorder of ligament, right wrist Gestational hypertension Over weight and not yet delivered Surgical History Surgical History History of wisdom tooth extraction Family History Family History Father Hypertension Grandparent Diabetes mellitus maternal grandfather Acute myocardial infarction maternal grandfather Brain stem hemorrhage maternal grandfather Breast cancer maternal grandmother paternal grandmother Social History Social History (Updated 04/25/23 @ 09:55 by Marlene James, [facility]) Smoking status: Never smoker Second hand tobacco smoke exposure: No Alcohol intake: never Substance use: never Substance use type: does not use Lack of Transportation: No Lack of Food: Never True Current Housing: I Have Housing Concerned About Future Housing: No Difficulty Paying Gas/Electric Bills: No Difficulty Paying for Meds: No Currently Unemployed: No Education: Master's Degree or Higher Difficulty w/ Childcare or Family Care: No Living arrangements: other Additional living arrangements comments: Occupation/Education: occupation Additional occupation/education comments: [employer] Gender identity (if verbalized by the patient): Female Sexual Orientation (if Verbalized by the Patient): Straight or Heterosexual Spiritual care concerns: No Exam Narrative: GENERAL: Well-appearing, well-nourished, and in no acute distress. HEAD: Normocephalic, atraumatic. EYES: PERRLA and EOMI. ENT: Nares clear. Mucous membranes dry. NECK: Supple. CHEST: Clear to auscultation. No respiratory distress. HEART: Regular rate and rhythm. Normal peripheral pulses. ABDOMEN: Soft, nontender, nondistended. EXTREMITIES: Normal range of motion. No edema. SKIN: Warm, dry, no rash. NEURO: No focal deficits. Alert and oriented x3. PSYCH: Normal mood and affect. Course Course Emergency Cour
[2023-04-25] MEDS: DEXTROSE 5%/LACTATED RINGERS 1,000 ML 1000 ML IV CONT (12:30)
[2023-04-25] MEDS: diphenhydrAMINE HCl INJ 50 MG/ML VIAL 25 MG IV PUSH (12:31)
[2023-04-25] MEDS: METOCLOPRAMIDE HCL INJ 10 MG/2 ML VIAL IV PUSH (12:31)
[2023-04-25 12:36] LABS: Glucose Point of Care 79 mg/dl (65-105)
[2023-04-25 12:39] LABS: Basophils Percent Auto 0.2 % (0.2-1.2); Eosinophils Percent Auto 0.1 % (0-4.4); Hematocrit 41.1 % (37.0-47.0); Hemoglobin 13.9 g/dL (12.0-15.0); Immature Granulocyte Absolute 0.04 K/mm3 (0.00-0.031); Immature Granulocyte Percent A 0.4 % (0-0.5); Lymphocytes Absolute Auto 1.75 K/mm3 (0.9-3.2); Lymphocytes Percent Auto 16.2 % (18.3-44.2); Mean Corpuscular HGB Conc 33.8 g/dl (32-36); Mean Corpuscular Hemoglobin 30.5 pg (26-34); Mean Corpuscular Volume 90.1 fl (80-100); Monocytes Absolute Auto 0.4 K/mm3 (0.1-0.6); Monocytes Percent Auto 3.8 % (2.6-8.5); Neutrophils Absolute Auto 8.6 K/mm3 (1.3-6.7); Neutrophils Percent Auto 79.3 % (45.5-73.1); Platelet Count Result 217 k/mm3 (150-375); Red Blood Count 4.56 M/mm3 (4.2-5.4); Red Cell Distribution Width 12.2 % (11.5-14.5); White Blood Count 10.8 K/mm3 (4.5-10.0)
[2023-04-25 12:52] LABS: Lipase 43 U/L (23-300)
[2023-04-25 12:55] LABS: Alanine Aminotransferase 43 U/L (6-35); Albumin Level 4.5 g/dL (3.5-5.1); Alkaline Phosphatase 53 U/L (38-126); Anion Gap 10 mmol/L (8-16); Aspartate Amino Transferase 26 U/L (14-36); Blood Urea Nitrogen 10 mg/dL (7-17); Calcium 9.1 mg/dL (8.4-10.2); Carbon Dioxide 22 mmol/L (22-30); Chloride 103 mmol/L (98-107); Estimated CRCL calculation 143 ml/min; Estimated Glomerular Filt Rate > 60; Glucose 79 mg/dL (65-110); Potassium 3.7 mmol/L (3.4-5.0); Sodium 135 mmol/L (137-145)
[2023-04-25] MEDS: DEXTROSE 5%/LACTATED RINGERS 1,000 ML 999 ML IV CONT (13:39)
[2023-04-25 13:52] LABS: Appearance Urine Clear (Clear); Bilirubin Urine Negative (Negative); Blood Urine Negative (Negative); Color Urine Yellow (Yellow); Glucose Urine UA 3+ mg/dL (Negative); Ketones Urine 3+ mg/dL (Negative); Leukocyte Esterase Ur Negative LEU/UL (Negative); Nitrate Urine Negative (Negative); Protein Urine Negative (Negative); Specific Grav Ur 1.014 (1.001-1.035); Urobilinogen Urine 0.2 mg/dL (<2.0)
[2023-04-25 13:54] LABS: Add Urine Microscopic? NO
[2023-04-25 16:01] VITALS: BP 112/75; PULSE 65; RESP 16; O2SAT 100
== END 2023-04-25 16:02 | disposition home or self-care (01) ==
PROVIDERS: Emergency Provider Student in an Organized Health Care Education/Training Program; PCP Obstetrics & Gynecology
DX: O21.0 Mild hyperemesis gravidarum (principal); O99.511 Diseases of the respiratory system complicating pregnancy, first trimester; J45.909 Unspecified asthma, uncomplicated; O99.281 Endocrine, nutritional and metabolic diseases complicating pregnancy, first trimester; E66.3 Overweight; Z3A.01 Less than 8 weeks gestation of pregnancy
CPT/HCPCS: 36415; 80053; 81003; 81025; 82948; 83690; 84702; 85025; 96374; 96375; 99284; J1200; J2765; J7121

== ENCOUNTER 2023-05-04 15:51 | Observation (INO) | payer BC, SELFPAY ==
--- NOTE | ~2023-05-04 | US_ITS ---
EXAMINATION: US OB <=14 wk fetus w TV INDICATION: , abd pain TECHNIQUE: Sonography of the pelvis was performed by transabdominal and transvaginal techniques. COMPARISON: None. RESULT: Uterus: 9.1 x 6.3 x 7.6 cm. Anteverted. Retroverted uterus. Rounded 6.1 cm fibroid in the anterior ut erine body which displaces the gestational sac. Intrauterine gestational sac: Single present. Yolk sac: Present, not directly measured . Embryo: Single present. [place] rump length: 1.76 cm, corresponding gestational age 8 weeks, 2 days. Gestational heart rate: present 167 bpm. Subgestational hematoma: 1.9 x 0.8 cm subchorionic hemorrhage. Right ovary: 4.0 x 1.9 x 2.5 cm. Vascular flow is present. No adnexal mass. Left ovary: 5.6 x 2.2 x 2.9 cm., Volume 18.8 mL. Vascular flow is present. No adnexal mass. Pelvis free fluid: None. IMPRESSION: Single, live intrauterine gestation. Estimated Gestational Age: 8 weeks, 2 days by crown rump length. SHANIQUA by ultrasound 12/12/2023. 6.1 cm intramural uterine fibroid which displaces the gestational sac. Small subchorionic hemorrhage. Left ovary enlargement to 18.8 mL, which may be normal for this stage of , but can also be t he sole sonographic finding of ovarian torsion. Correlate for intermittent adnexal pain or other clin ical findings of ovarian torsion. Reviewed, dictated and finalized at location K. HEEL FITTER MACHINE IMPRESSION: Single, live intrauterine gestation. Estimated Gestational Age: 8 weeks, 2 days by crown rump length. SHANIQUA by ultras ound 12/12/2023. 6.1 cm intramural uterine fibroid which displaces the gestational sac. Small subchorionic hemorrhage. Left ovary enlargement to 18.8 mL, which may be normal for this stage of pregna ncy, but can also be the sole sonographic finding of ovarian torsion. Correlate for intermittent adnexal pain or other clinical findings of ovarian torsion.
--- NOTE | ~2023-05-04 | US_ITS ---
EXAMINATION: US abdomen limited DATE: 05/04/2023 22:05 INDICATION: transaminitis TECHNIQUE: Multiple grayscale and Doppler ultrasound images of limited portions of the abdomen were o btained. COMPARISON: None available. FINDINGS: The visualized portions of the pancreas are normal. The liver is normal with normal echogen icity and echotexture. No surface nodularity. Normal hepatopetal flow in the main portal vein. Cholel ithiasis. No wall thickening or pericholecystic fluid. The common bile duct measures 3 mm. There was no sonographic Thakur sign. The right kidney measures 11.0 x 5.8 x 5.5. No right hydronephrosis. IMPRESSION: Cholelithiasis without sonographic evidence of cholecystitis. Otherwise normal limited abdominal ultr asound findings. Reviewed, dictated and finalized at location K. ECTOR TOOL IMPRESSION: Cholelithiasis without sonographic evidence of cholecystitis. Otherwise normal limited abdominal ultrasound findings.
[2023-05-04 16:34] VITALS: BP 112/46; PULSE 78; RESP 16; TEMP 37.4; O2SAT 100
--- NOTE | 2023-05-04 18:57 | PC.NURSE ---
pt went to an infusion center for fluids and zofran @1300. pt took pepcid this morning around 1100. pt was referred here from doctor.
[2023-05-04 19:02] VITALS: BP 95/53; PULSE 72; RESP 20; O2SAT 100
[2023-05-04 19:10] VITALS: BP 101/60; PULSE 77; RESP 23; O2SAT 100
[2023-05-04 19:56] LABS: Basophils Percent Auto 0.2 % (0.2-1.2); Eosinophils Percent Auto 0.1 % (0-4.4); Hematocrit 35.5 % (37.0-47.0); Immature Granulocyte Absolute 0.03 K/mm3 (0.00-0.031); Immature Granulocyte Percent A 0.3 % (0-0.5); Lymphocytes Absolute Auto 1.94 K/mm3 (0.9-3.2); Mean Corpuscular HGB Conc 33.8 g/dl (32-36); Mean Corpuscular Hemoglobin 30.3 pg (26-34); Mean Corpuscular Volume 89.6 fl (80-100); Mean Platelet Volume 11.4 fl (7.4-10.4); Monocytes Absolute Auto 0.5 K/mm3 (0.1-0.6); Monocytes Percent Auto 4.8 % (2.6-8.5); Neutrophils Absolute Auto 7.3 K/mm3 (1.3-6.7); Neutrophils Percent Auto 74.6 % (45.5-73.1); Platelet Count Result 206 k/mm3 (150-375); Red Blood Count 3.96 M/mm3 (4.2-5.4); Red Cell Distribution Width 12.6 % (11.5-14.5); White Blood Count 9.7 K/mm3 (4.5-10.0)
[2023-05-04 20:08] LABS: Alanine Aminotransferase 322 U/L (6-35); Albumin Level 4.1 g/dL (3.5-5.1); Alkaline Phosphatase 63 U/L (38-126); Anion Gap 9 mmol/L (8-16); Aspartate Amino Transferase 122 U/L (14-36); Bilirubin,Total 1.1 mg/dL (0.2-1.3); Blood Urea Nitrogen 6 mg/dL (7-17); Calcium 8.8 mg/dL (8.4-10.2); Carbon Dioxide 20 mmol/L (22-30); Chloride 106 mmol/L (98-107); Estimated CRCL calculation 154 ml/min; Estimated Glomerular Filt Rate > 60; Glucose 75 mg/dL (65-110); Lipase 70 U/L (23-300); Potassium 3.2 mmol/L (3.4-5.0); Sodium 135 mmol/L (137-145)
[2023-05-04 20:10] LABS: Appearance Urine Cloudy (Clear); Bacteria Urine Rare /hpf; Bilirubin Urine 1+ (Negative); Color Urine Dark Yellow (Yellow); Glucose Urine UA Negative (Negative); Ketones Urine 4+ mg/dL (Negative); Leukocyte Esterase Ur Trace LEU/UL (Negative); Nitrate Urine Negative (Negative); Non Pathogenic Casts 0-2; Protein Urine Negative (Negative); Specific Grav Ur 1.021 (1.001-1.035); Squamous Epithelial Cell Urine Moderate /hpf (Few)
[2023-05-04 20:13] LABS: Add Urine Microscopic? YES
[2023-05-04] MEDS: SODIUM CHLORIDE 0.9% IV 1,000 ML 999 ML IV CONT (20:36)
[2023-05-04 20:50] VITALS: BP 91/53; PULSE 76; RESP 14; O2SAT 100
--- NOTE | 2023-05-04 21:07 | ED.NAVMDI ---
HPI - Nausea/Vomiting/Diarrhea General Chief complaint: Nausea/Vomiting/Diarrhea <Brandi Santacruz PA-C - Last Filed: 05/05/23 01:38> Stated complaint: dehydration- 8 weeks <Brandi Santacruz PA-C - Last Filed: 05/05/23 01:38> Time Seen by Provider: 05/04/23 19:24 <Brandi Santacruz PA-C - Last Filed: 05/05/23 01:38> Source: patient <Brandi Santacruz PA-C - Last Filed: 05/05/23 01:38> Mode of arrival: ambulatory <PHOEBE Hendrix Last Filed: 05/05/23 01:38> Limitations: no limitations <Brandi Santacruz PA-C - Last Filed: 05/05/23 01:38> History of Present Illness HPI Narrative: This is a 27 year old female that presents to the ER for nausea and vomiting. Ongoing over the last couple of weeks. She is currently 8 weeks . She has been having trouble with hyperemesis. She is receiving IV fluids every other day for this. She takes vitamin B6 and Unisom nightly. Has Makeda and p.r.n.. Her OB is Dr. Hernandez. Reports she just had an infusion today, but she still feels very dehydrated and weak. Reports every time she eats anything she has horrible reflux and nausea. She was sent in for further evaluation. Reports she has not had a bowel movement in over a week. Denies fever, cough, congestion, or diarrhea. <Brandi Santacruz PA-C - Last Filed: 05/05/23 01:38> Related Data Home medications: Home Medications Medication Instructions Recorded Confirmed vit no.95-ferrous 1 tablet PO DAILY 03/18/21 05/10/23 fumarate 28 mg-folic acid 800 mcg tablet () doxylamine succinate 25 mg tablet 12.5 mg PO HS PRN nausea 04/28/23 05/10/23 (Unisom (doxylamine)) pyridoxine (vitamin B6) 100 mg 50 mg PO DAILY 04/28/23 05/10/23 tablet (Vitamin B-6) famotidine 20 mg tablet (Pepcid) 20 mg PO DAILY 05/10/23 05/10/23 <Brandi Santacruz PA-C - Last Filed: 05/05/23 01:38> Allergies/Adverse reactions: Allergies Allergy/AdvReac Type Severity Reaction Status Date / Time No Known Allergies Allergy Verified 05/10/23 15:25 <Brandi Satnacruz PA-C - Last Filed: 05/05/23 01:38> Review of Systems Review of Systems: CONSTITUTIONAL: Denies fever ENT: Denies congestion, sore throat GASTROINTESTINAL: Reports abdominal pain, nausea, vomiting. Denies diarrhea. GENITOURINARY: Denies dysuria <PHOEBE Hendrix Last Filed: 05/05/23 01:38> All systems reviewed & are unremarkable except as noted in HPI and below <PHOEBE Hendrix Last Filed: 05/05/23 01:38> [facility] Past Medical History Medical History: Medical History Asthma Disorder of ligament, right wrist Gestational hypertension Over weight and not yet delivered <PHOEBE Hendrix Last Filed: 05/05/23 01:38> Surgical History Surgical History: Surgical History History of wisdom tooth extraction <PHOEBE Hendrxi Last Filed: 05/05/23 01:38> Family History Family History: Family History Father Hypertension Grandparent Diabetes mellitus maternal grandfather Acute myocardial infarction maternal grandfather Brain stem hemorrhage maternal grandfather Breast cancer maternal grandmother paternal grandmother <PHOEBE Hendrix Last Filed: 05/05/23 01:38> Social History Social History: Social History Smoking status: Former smoker Second hand tobacco smoke exposure: No Alcohol intake: never Substance use: never Substance use type: does not use Lack of Transportation: No Lack of Food: Never True Current Housing: I Have Housing Concerned About Future Housing: No Difficulty Paying Gas/Electric Bills: No Difficulty Paying for Meds: No Currently Unemployed:
[2023-05-04] MEDS: FAMOTIDINE 20 MG/2 ML VIAL IV PUSH (21:17)
[2023-05-04] MEDS: ONDANSETRON INJ 4 MG/2 ML VIAL IV PUSH (21:17)
[2023-05-04 21:55] LABS: Influenza A QL RT-PCR Negative (Negative); Influenza B QL RT-PCR Negative (Negative); RSV RNA, RT-PCR Negative (Negative); SARS-CoV-2 RNA PCR Negative (Negative)
[2023-05-04] MEDS: POTASSIUM CHLORIDE INJ 40 MEQ in SODIUM CHLORIDE 0.9% IV 500 ML 130 MEQ IVPB (22:20)
--- NOTE | 2023-05-04 22:23 | PC.NURSE ---
pt states they did not want the tylenol for NGUYEN and wanted to try an ice pack and dimmed lights first.
[2023-05-04 22:30] VITALS: BP 96/57; PULSE 74; RESP 18; O2SAT 100
[2023-05-04 23:03] VITALS: BP 102/58; PULSE 72; RESP 17; O2SAT 100
--- NOTE | 2023-05-04 23:09 | PC.NURSE ---
report and care given to RUTHIE Hernandez. all questions answered.
[2023-05-05] VITALS (7 sets, daily range): BP systolic 90–98; BP diastolic 48–57; PULSE 59–68
--- NOTE | 2023-05-05 00:50 | OBADM ---
This patient, Eduardo West, admitted to the OB room OB Post 117 for observation at 0050 via stretcher from ED for hydration. Mom able to transfer self from stretcher to bed. Patient/family oriented to hospital policies and general routines including ID bracelet, bed and alarms, visiting hours, pain management, procedures, bathroom and other care routines, personal items, smoking policy, room service/diet, and visiting hours. Patient/Family are encouraged to report perceived risks to care and to ask questions if they do not understand what they are told or what they should do.
[2023-05-05] MEDS: PROMETHAZINE HCL 25 MG/ML AMPUL 12.5 MG IV PUSH (01:25)
--- NOTE | 2023-05-05 01:30 | PC.NURSE ---
Mom requesting something for headache. Reviewed options to call MD due to increased liver enzymes and . Mom does not want narcotics. Ice pack given.
[2023-05-05] MEDS: DEXTROSE 5%/LACTATED RINGERS 1,000 ML 150 ML IV CONT (01:40)
--- NOTE | 2023-05-05 07:17 | PM.IMHP ---
H&P: HPI History of Present Illness Date/Time: 05/05/23 07:17 Chief Complaint: hyperemesis GERD Narrative: 27 yo female who presents at 8w gestation with intractable hyperemesis. Patient has been dealing with hyper emesis for several weeks. Patient has been receiving a tree every day patient states her hyperemesis is not control with Unisom, vitamin B6, Reglan, Zofran. Patient reports indigestion every time she tries to eat. Patient has not had a bowel movement over 10 days. Patient was admitted overnight for IV antiemetics and IV fluid hydration. Review of Systems Cardiovascular: Cardiovascular: Denies chest pain, Denies leg edema, Denies palpitations, Denies dyspnea and Denies dyspnea on exertion Respiratory: Respiratory: Denies cough, Denies dyspnea and Denies dyspnea on exertion Gastrointestinal: Gastrointestinal: Denies abdominal pain, Denies constipation, Denies diarrhea, Denies nausea and Denies vomiting Genitourinary: Genitourinary: Denies hematuria, Denies urinary frequency, Denies dysuria, Denies pelvic pain, Denies urinary incontinence and Denies vaginal discharge Neurologic: Reports system reviewed and no additional complaints, except as documented Psychiatric: Psychiatric: Reports no additional psychiatric complaints Endocrine: Endocrine: Denies palpitations PMFSH Past Medical History Medical History Asthma Disorder of ligament, right wrist Gestational hypertension Over weight and not yet delivered Surgical History Surgical History History of wisdom tooth extraction Family History Family History Father Hypertension Grandparent Diabetes mellitus maternal grandfather Acute myocardial infarction maternal grandfather Brain stem hemorrhage maternal grandfather Breast cancer maternal grandmother paternal grandmother Social History Social History (Updated 04/25/23 @ 09:55 by MATEUSZ Fallon) Smoking status: Former smoker Second hand tobacco smoke exposure: No Alcohol intake: never Substance use: never Substance use type: does not use Lack of Transportation: No Lack of Food: Never True Current Housing: I Have Housing Concerned About Future Housing: No Difficulty Paying Gas/Electric Bills: No Difficulty Paying for Meds: No Currently Unemployed: No Education: Master's Degree or Higher Difficulty w/ Childcare or Family Care: No Living arrangements: other Additional living arrangements comments: 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 Gender identity (if verbalized by the patient): Female Sexual Orientation (if Verbalized by the Patient): Straight or Heterosexual Spiritual care concerns: No Meds Home Medications and Allergies Home Medications Medication Instructions Recorded Confirmed Type vit no.95-ferrous 1 tablet PO DAILY 03/18/21 05/04/23 History fumarate 28 mg-folic acid 800 mcg tablet () metoclopramide HCl 10 mg tablet 10 mg PO Q6H PRN nausea and 04/25/23 05/04/23 Rx (Reglan) vomiting #30 tabs ondansetron 4 mg disintegrating 4 mg PO Q8H PRN nausea and 04/25/23 05/04/23 Rx tablet vomiting #10 tabs doxylamine succinate 25 mg tablet 12.5 mg PO HS PRN nausea 04/28/23 05/04/23 History (Unisom (doxylamine)) pyridoxine (vitamin B6) 100 mg 50 mg PO DAILY 04/28/23 05/04/23 History tablet (Vitamin B-6) Allergies Allergy/AdvReac Type Severity Reaction Status Date / Time No Known Allergies Allergy Verified 05/04/23 15:28 Vital Signs Vital Signs - 24 hr 05/04/23 16:34 05/04/23 19:02 05/04/23 19:10 Temperature 99.4 F Pulse Rate 78 72 77 Respiratory Rate 16 20 23 H Blood Pressure 112/46 L 95/53 L 101/60 Pulse Oximetry 100 100 100 Oxyg
[2023-05-05] MEDS: METOCLOPRAMIDE HCL 10 MG TABLET PO (09:31)
--- NOTE | 2023-05-05 09:57 | PC.NURSE ---
0715--Dr Mi at bedside. Plan of care discussed.
--- NOTE | 2023-05-05 09:58 | PC.NURSE ---
0900--Pt reports feeling better. Pt denies nausea and headache.
--- NOTE | 2023-05-05 09:59 | PC.NURSE ---
0925--Pt tolerating ice chips. Will advance diet as tolerated.
--- NOTE | 2023-05-06 09:17 | PM.OBTRLD ---
OB - Triage/Final Diagnosis Visit Information Date of evaluation: 05/04/23 Reason for evaluation: other (hyperemesis) Comments/Additional reasons for admission: I have assessed the risk for this patient, Eduardo West, and determined that she would benefit from observation care. Evaluation Laboratory results: Laboratory Tests 05/04/23 05/04/23 05/04/23 19:44 19:45 19:52 WBC 9.7 RBC 3.96 L Hgb 12.0 Hct 35.5 L MCV 89.6 MCH 30.3 MCHC 33.8 RDW 12.6 Plt Count 206 MPV 11.4 H Immature Gran % (Auto) 0.3 Neut % (Auto) 74.6 H Lymph % (Auto) 20.0 [place] % (Auto) 4.8 Eos % (Auto) 0.1 Baso % (Auto) 0.2 Lymph # (Auto) 1.94 [place] # (Auto) 0.5 Eos # (Auto) 0.0 Baso # (Auto) 0.0 Abs Immat Gran (auto) 0.03 Absolute Neuts (auto) 7.3 H Absolute Nucleated RBC 0.0 Nucleated RBC % 0.0 Sodium 135 L Potassium 3.2 L Chloride 106 Carbon Dioxide 20 L Anion Gap 9 BUN 6 L Creatinine 0.40 L Estim Creat Clear Calc 154 Estimated GFR > 60 Glucose 75 Calcium 8.8 Magnesium 2.0 Total Bilirubin 1.1 AST 122 H ALT 322 H Alkaline Phosphatase 63 Total Protein 7.0 Albumin 4.1 Lipase 70 Beta HCG, Quant 394297.00 Urine Color Dark yellow Urine Appearance Cloudy H Urine pH 6.0 Ur Specific [place] 1.021 Urine Protein Negative Urine Glucose (UA) Negative Urine Ketones 4+ H Ur Blood (Man) Non-hemolyzed trace Urine Nitrate Negative Urine Bilirubin 1+ H Urine Urobilinogen 1.0 Leukocyte Esterase Rfl Trace H Urine RBC 6-10 H Urine WBC 6-10 H Ur Squamous Epith Cells Moderate Urine Bacteria Rare Urine Casts 0-2 Influenza A (RT-PCR) Influenza B (RT-PCR) RSV (RT-PCR) SARS-CoV-2 RNA (RT-PCR) 05/04/23 21:13 WBC RBC Hgb Hct MCV MCH MCHC RDW Plt Count MPV Immature Gran % (Auto) Neut % (Auto) Lymph % (Auto) [place] % (Auto) Eos % (Auto) Baso % (Auto) Lymph # (Auto) [place] # (Auto) Eos # (Auto) Baso # (Auto) Abs Immat Gran (auto) Absolute Neuts (auto) Absolute Nucleated RBC Nucleated RBC % Sodium Potassium Chloride Carbon Dioxide Anion Gap BUN Creatinine Estim Creat Clear Calc Estimated GFR Glucose Calcium Magnesium Total Bilirubin AST ALT Alkaline Phosphatase Total Protein Albumin Lipase Beta HCG, Quant Urine Color Urine Appearance Urine pH Ur Specific [place] Urine Protein Urine Glucose (UA) Urine Ketones Ur Blood (Man) Urine Nitrate Urine Bilirubin Urine Urobilinogen Leukocyte Esterase Rfl Urine RBC Urine WBC Ur Squamous Epith Cells Urine Bacteria Urine Casts Influenza A (RT-PCR) Negative Influenza B (RT-PCR) Negative RSV (RT-PCR) Negative SARS-CoV-2 RNA (RT-PCR) Negative Vital signs: Vital Signs - 24 hr 05/05/23 09:30 05/05/23 09:45 05/05/23 10:00 Pulse Rate 68 66 67 Blood Pressure 98/53 L 96/57 L 96/52 L
== END 2023-05-05 10:20 | disposition home or self-care (01) ==
LOC: ANHED 19:24 → ANHOBPP 05-05 00:58
PROVIDERS: Admitting Provider Student in an Organized Health Care Education/Training Program; Emergency Provider Physician Assistant; PCP Obstetrics & Gynecology; Visit Provider Student in an Organized Health Care Education/Training Program
DX: O21.9 Vomiting of pregnancy, unspecified (principal); O99.611 Diseases of the digestive system complicating pregnancy, first trimester; K80.20 Calculus of gallbladder without cholecystitis without obstruction; O99.281 Endocrine, nutritional and metabolic diseases complicating pregnancy, first trimester; E87.6 Hypokalemia; E86.0 Dehydration; Z3A.08 8 weeks gestation of pregnancy; Z20.822 Contact with and (suspected) exposure to COVID-19; Z79.899 Other long term (current) drug therapy; Z87.891 Personal history of nicotine dependence
CPT/HCPCS: 36415; 76705; 76801; 76817; 80053; 81001; 83690; 83735; 84702; 85025; 87086; 87088; 87637; 96361; 96374; 96375; 99285; A9270; G0378; J2405; J2550; J3480; J7030; J7040; J7121

== ENCOUNTER 2023-05-11 09:55 | Observation (INO) | payer BC, SELFPAY ==
--- NOTE | 2023-05-11 09:55 | OBADM ---
This patient, Eduardo West, admitted to the OB room OB Post 112 for observation. Patient/family oriented to hospital policies and general routines including ID bracelet, bed and alarms, visiting hours, pain management, procedures, bathroom and other care routines, personal items, smoking policy, room service/diet, and visiting hours. Patient/Family are encouraged to report perceived risks to care and to ask questions if they do not understand what they are told or what they should do.
[2023-05-11 10:15] VITALS: BMI 26.0
[2023-05-11] MEDS: DEXTROSE 5%/LACTATED RINGERS 1,000 ML 999 ML IV CONT (10:40)
[2023-05-11] MEDS: METOCLOPRAMIDE HCL 10 MG TABLET PO (10:41)
[2023-05-11 10:45] VITALS: BP 101/66; PULSE 71
[2023-05-11 11:22] VITALS: TEMP 36.1
[2023-05-11] MEDS: LACTATED RINGERS 1,000 ML 999 ML IV CONT ×2 (11:44→12:50)
[2023-05-11 14:02] LABS: Basophils Percent Auto 0.1 % (0.2-1.2); Eosinophils Percent Auto 0.1 % (0-4.4); Hematocrit 31.6 % (37.0-47.0); Hemoglobin 10.9 g/dL (12.0-15.0); Immature Granulocyte Absolute 0.01 K/mm3 (0.00-0.031); Immature Granulocyte Percent A 0.1 % (0-0.5); Lymphocytes Absolute Auto 1.32 K/mm3 (0.9-3.2); Lymphocytes Percent Auto 19.5 % (18.3-44.2); Mean Corpuscular HGB Conc 34.5 g/dl (32-36); Mean Corpuscular Hemoglobin 30.5 pg (26-34); Mean Corpuscular Volume 88.5 fl (80-100); Mean Platelet Volume 11.1 fl (7.4-10.4); Monocytes Absolute Auto 0.4 K/mm3 (0.1-0.6); Monocytes Percent Auto 5.9 % (2.6-8.5); Neutrophils Percent Auto 74.3 % (45.5-73.1); Platelet Count Result 201 k/mm3 (150-375); Red Blood Count 3.57 M/mm3 (4.2-5.4); Red Cell Distribution Width 12.5 % (11.5-14.5); White Blood Count 6.8 K/mm3 (4.5-10.0)
[2023-05-11] MEDS: ONDANSETRON INJ 4 MG/2 ML VIAL IV PUSH (14:09)
[2023-05-11 14:14] LABS: Alanine Aminotransferase 253 U/L (6-35); Albumin Level 3.2 g/dL (3.5-5.1); Alkaline Phosphatase 54 U/L (38-126); Anion Gap 5 mmol/L (8-16); Aspartate Amino Transferase 103 U/L (14-36); Bilirubin,Total 3.2 mg/dL (0.2-1.3); Blood Urea Nitrogen 4 mg/dL (7-17); Calcium 8.4 mg/dL (8.4-10.2); Carbon Dioxide 21 mmol/L (22-30); Chloride 110 mmol/L (98-107); Estimated CRCL calculation 154 ml/min; Estimated Glomerular Filt Rate > 60; Glucose 90 mg/dL (65-110); Potassium 3.2 mmol/L (3.4-5.0); Sodium 136 mmol/L (137-145)
--- NOTE | 2023-05-11 15:18 | PC.NURSE ---
Dr. Hernandez phoned in for status. Lab results reviewed in office. Pt unable to keep anything down at this time. D/C home to follow up at infusion center tomorrow. Will call MFM and surgeon for follow up.
--- NOTE | 2023-05-12 10:11 | P.PNOB_ITS ---
OB - Triage/Final Diagnosis Visit Information Reason for evaluation: other ( hyperemesis) Comments/Additional reasons for admission: I have assessed the risk for this patient, Eduardo West, and determined that she would benefit from observation care. Evaluation Laboratory results: Laboratory Tests 05/11/23 13:55 WBC 6.8 RBC 3.57 L Hgb 10.9 L Hct 31.6 L MCV 88.5 MCH 30.5 MCHC 34.5 RDW 12.5 Plt Count 201 MPV 11.1 H Immature Gran % (Auto) 0.1 Neut % (Auto) 74.3 H Lymph % (Auto) 19.5 [place] % (Auto) 5.9 Eos % (Auto) 0.1 Baso % (Auto) 0.1 L Lymph # (Auto) 1.32 [place] # (Auto) 0.4 Eos # (Auto) 0.0 Baso # (Auto) 0.0 Abs Immat Gran (auto) 0.01 Absolute Neuts (auto) 5.0 Absolute Nucleated RBC 0.0 Nucleated RBC % 0.0 Sodium 136 L Potassium 3.2 L Chloride 110 H Carbon Dioxide 21 L Anion Gap 5 L BUN 4 L Creatinine 0.40 L Estim Creat Clear Calc 154 Estimated GFR > 60 Glucose 90 Calcium 8.4 Total Bilirubin 3.2 H AST 103 H ALT 253 H Alkaline Phosphatase 54 Total Protein 6.0 L Albumin 3.2 L Vital signs: Vital Signs - 24 hr 05/11/23 11:22 05/11/23 10:15 05/11/23 10:45 Temperature 97.0 F L Pulse Rate 71 Blood Pressure 101/66 Oxygen Delivery Room Air
== END 2023-05-11 16:25 | disposition home or self-care (01) ==
PROVIDERS: Admitting Provider Obstetrics & Gynecology; Visit Provider Obstetrics & Gynecology
DX: O21.0 Mild hyperemesis gravidarum (principal); Z3A.09 9 weeks gestation of pregnancy
CPT/HCPCS: 36415; 80053; 85025; 96361; 96374; A9270; G0378; G0379; J2405; J7120; J7121

== ENCOUNTER 2023-05-16 09:48 | Observation (INO) | payer BC, SELFPAY ==
--- NOTE | 2023-05-16 10:30 | OBADM ---
This patient, Eduardo West, admitted to the OB room OB Post 117 for observation. Patient/family oriented to hospital policies and general routines including ID bracelet, bed and alarms, visiting hours, pain management, procedures, bathroom and other care routines, personal items, smoking policy, room service/diet, and visiting hours. Patient/Family are encouraged to report perceived risks to care and to ask questions if they do not understand what they are told or what they should do.
[2023-05-16] MEDS: SODIUM CHLORIDE 0.45% 1,000 ML 999 ML IV CONT ×3 (10:36→13:20)
[2023-05-16] MEDS: ONDANSETRON INJ 4 MG/2 ML VIAL IV PUSH (10:37)
[2023-05-16 10:41] VITALS: TEMP 36.3
[2023-05-16 10:42] VITALS: BP 96/52; PULSE 72; BMI 25.8
[2023-05-16 10:45] VITALS: BP 92/50; PULSE 68
--- NOTE | 2023-05-16 10:55 | PC.NURSE ---
Pt requested to dopple FHTs. FHTs audible on doppler, but unable to get a rate.
--- NOTE | 2023-05-17 08:37 | PM.OBTRLD ---
OB - Triage/Final Diagnosis Visit Information Comments/Additional reasons for admission: I have assessed the risk for this patient, Eduardo West, and determined that she would benefit from observation care. Evaluation Vital signs: Vital Signs - 24 hr 05/16/23 10:41 05/16/23 10:42 05/16/23 10:42 Temperature 97.4 F L Pulse Rate 72 Blood Pressure 96/52 L Oxygen Delivery Room Air 05/16/23 10:45 Temperature Pulse Rate 68 Blood Pressure 92/50 L Oxygen Delivery Final Diagnosis (1) Hyperemesis: Code(s): R11.10 - Vomiting, unspecified Status: Acute (2) Dehydration: Code(s): E86.0 - Dehydration Status: Acute
== END 2023-05-16 14:41 | disposition home or self-care (01) ==
PROVIDERS: Admitting Provider Obstetrics & Gynecology; Visit Provider Obstetrics & Gynecology
DX: O21.0 Mild hyperemesis gravidarum (principal); O99.281 Endocrine, nutritional and metabolic diseases complicating pregnancy, first trimester; E86.0 Dehydration; Z3A.09 9 weeks gestation of pregnancy
CPT/HCPCS: 96361; 96374; G0378; G0379; J2405

== ENCOUNTER 2023-05-21 10:47 | Observation (INO) | payer BC, SELFPAY ==
[2023-05-21 11:19] VITALS: BP 102/50; PULSE 72; RESP 16; TEMP 36.2; BMI 25.3
--- NOTE | 2023-05-21 11:19 | OBADM ---
This patient, Eduardo West, admitted to the OB room 116 for observation. Patient/family oriented to hospital policies and general routines including ID bracelet, bed and alarms, visiting hours, pain management, procedures, bathroom and other care routines, personal items, smoking policy, room service/diet, and visiting hours. Patient/Family are encouraged to report perceived risks to care and to ask questions if they do not understand what they are told or what they should do.
[2023-05-21] MEDS: SODIUM CHLORIDE 0.45% 1,000 ML 999 ML IV CONT ×3 (11:39→13:40)
[2023-05-21] MEDS: ONDANSETRON INJ 4 MG/2 ML VIAL IV PUSH (11:39)
--- NOTE | 2023-05-21 14:50 | PC.NURSE ---
Pt feels up to go home. Standing order for discharge after 3 liters of IV fluids if pt feeling better.
--- NOTE | 2023-05-24 14:15 | PM.OBTRLD ---
OB - Triage/Final Diagnosis Visit Information Reason for evaluation: other (hyperemesis) Comments/Additional reasons for admission: I have assessed the risk for this patient, Eduardo Kathya West, and determined that she would benefit from observation care.
== END 2023-05-21 15:14 | disposition home or self-care (01) ==
PROVIDERS: Admitting Provider Obstetrics & Gynecology; Visit Provider Obstetrics & Gynecology
DX: O21.0 Mild hyperemesis gravidarum (principal); Z3A.10 10 weeks gestation of pregnancy
CPT/HCPCS: 96361; 96374; G0378; G0379; J2405

== ENCOUNTER 2023-05-25 09:33 | Observation (INO) | payer BC, SELFPAY ==
[2023-05-25 10:20] VITALS: BP 102/58; PULSE 72; RESP 16; TEMP 36.6; BMI 25.3
[2023-05-25 10:21] VITALS: BP 102/58; PULSE 72
[2023-05-25] MEDS: SODIUM CHLORIDE 0.45% 1,000 ML 999 ML IV CONT ×3 (10:22→12:43)
[2023-05-25] MEDS: ONDANSETRON INJ 4 MG/2 ML VIAL IV PUSH (10:25)
--- NOTE | 2023-05-25 10:31 | OBADM ---
This patient, Eduardo West, admitted to the OB room 115 for observation. Patient/family oriented to hospital policies and general routines including ID bracelet, bed and alarms, visiting hours, pain management, procedures, bathroom and other care routines, personal items, smoking policy, room service/diet, and visiting hours. Patient/Family are encouraged to report perceived risks to care and to ask questions if they do not understand what they are told or what they should do.
--- NOTE | 2023-05-25 10:48 | PC.NURSE ---
Dr. Mi informed pt hasn't had a BM in 6 days. Bowel sounds are active and pt is having flatus. Order received for fleets enema before discharge.
--- NOTE | 2023-05-25 11:37 | PC.NURSE ---
Dr. Mi in to see pt. Had discussion regarding [facility]'s recommendation for a feeding tube. Pt is afraid her daughter would pull it out of her nose. Pt wanting to hold out until May to see if the nausea improves. Discussed pt trying protein shakes or Ensure orally on her own and pt willing to try. Pt states she can usually eat something and keep it down before she goes to bed at night. States she had 3/4 of a normal serving of roast beef last night and a few german fries. States that was the first time she has had meat in awhile.
--- NOTE | 2023-05-25 13:16 | PM.OBTRLD ---
OB - Triage/Final Diagnosis Visit Information Date of evaluation: 05/25/23 Reason for evaluation: other (hyperemesis) Comments/Additional reasons for admission: I have assessed the risk for this patient, Eduardo West, and determined that she would benefit from observation care. Evaluation Vital signs: Vital Signs - 24 hr 05/25/23 10:20 05/25/23 10:20 05/25/23 10:21 Temperature 97.8 F Pulse Rate 72 72 Respiratory Rate 16 Blood Pressure 102/58 L 102/58 L Oxygen Delivery Room Air
== END 2023-05-25 14:30 | disposition home or self-care (01) ==
PROVIDERS: Admitting Provider Obstetrics & Gynecology; Visit Provider Student in an Organized Health Care Education/Training Program
DX: O21.0 Mild hyperemesis gravidarum (principal); Z3A.11 11 weeks gestation of pregnancy
CPT/HCPCS: 96361; 96374; G0378; G0379; J2405

== ENCOUNTER 2023-05-30 14:48 | Observation (INO) | payer BC, SELFPAY ==
[2023-05-30] MEDS: SODIUM CHLORIDE 0.45% 1,000 ML 999 ML IV CONT ×3 (15:30→17:24)
[2023-05-30] MEDS: ONDANSETRON INJ 4 MG/2 ML VIAL IV PUSH (15:41)
[2023-05-30 15:45] LABS: Basophils Percent Auto 0.3 % (0.2-1.2); Eosinophils Percent Auto 0.5 % (0-4.4); Hematocrit 37.1 % (37.0-47.0); Hemoglobin 12.4 g/dL (12.0-15.0); Immature Granulocyte Absolute 0.03 K/mm3 (0.00-0.031); Immature Granulocyte Percent A 0.4 % (0-0.5); Lymphocytes Percent Auto 17.5 % (18.3-44.2); Mean Corpuscular HGB Conc 33.4 g/dl (32-36); Mean Corpuscular Hemoglobin 30.6 pg (26-34); Mean Corpuscular Volume 91.6 fl (80-100); Monocytes Absolute Auto 0.4 K/mm3 (0.1-0.6); Monocytes Percent Auto 4.6 % (2.6-8.5); Neutrophils Absolute Auto 6.1 K/mm3 (1.3-6.7); Neutrophils Percent Auto 76.7 % (45.5-73.1); Platelet Count Result 206 k/mm3 (150-375); Red Blood Count 4.05 M/mm3 (4.2-5.4); Red Cell Distribution Width 12.7 % (11.5-14.5)
[2023-05-30 15:50] VITALS: BMI 25.0
--- NOTE | 2023-05-30 15:51 | OBADM ---
This patient, Eduardo West, admitted to the OB room OB Post 116 for observation. Patient/family oriented to hospital policies and general routines including ID bracelet, bed and alarms, visiting hours, pain management, procedures, bathroom and other care routines, personal items, smoking policy, room service/diet, and visiting hours. Patient/Family are encouraged to report perceived risks to care and to ask questions if they do not understand what they are told or what they should do.
[2023-05-30 16:42] LABS: HIV 1/2 Ab P24 Ag Result Negative (Negative)
[2023-05-30 16:46] LABS: Rubella IgG Antibody 10.2 IU/ML
[2023-05-30 17:01] LABS: Hepatitis B Surface Anti Res Negative
--- NOTE | 2023-06-01 10:49 | P.PNOB_ITS ---
OB - Triage/Final Diagnosis Visit Information Reason for evaluation: other ( Hyperemesis) Comments/Additional reasons for admission: I have assessed the risk for this patient, Eduardo West, and determined that she would benefit from observation care. Evaluation Laboratory results: Laboratory Tests 05/30/23 15:32 WBC 8.0 RBC 4.05 L Hgb 12.4 Hct 37.1 MCV 91.6 MCH 30.6 MCHC 33.4 RDW 12.7 Plt Count 206 MPV 11.0 H Immature Gran % (Auto) 0.4 Neut % (Auto) 76.7 H Lymph % (Auto) 17.5 L [place] % (Auto) 4.6 Eos % (Auto) 0.5 Baso % (Auto) 0.3 Lymph # (Auto) 1.40 [place] # (Auto) 0.4 Eos # (Auto) 0.0 Baso # (Auto) 0.0 Abs Immat Gran (auto) 0.03 Absolute Neuts (auto) 6.1 Absolute Nucleated RBC 0.0 Nucleated RBC % 0.0 Hep Bs Antibody Negative HIV 1&2 Ab/P24 Ag 4thGn Negative Rubella IgG Antibody 10.2 Blood Type A Positive Antibody Screen Negative
[2023-06-01 12:20] LABS: Rapid Plasma Reagin Non-Reactive (NonReactive)
== END 2023-05-30 18:15 | disposition home or self-care (01) ==
PROVIDERS: Admitting Provider Obstetrics & Gynecology; Visit Provider Obstetrics & Gynecology
DX: O21.9 Vomiting of pregnancy, unspecified (principal); Z3A.11 11 weeks gestation of pregnancy; Z11.4 Encounter for screening for human immunodeficiency virus [HIV]
CPT/HCPCS: 36415; 85025; 86592; 86644; 86703; 86706; 86747; 86762; 86787; 86850; 86900; 86901; 87086; 87088; 96361; 96374; G0378; G0379; G0432; J2405

== ENCOUNTER 2023-09-09 13:43 | Observation (INO) | payer BC, SELFPAY ==
[2023-09-09] VITALS (16 sets, daily range): BP systolic 97–102; BP diastolic 50–57; PULSE 83–96; RESP 18; TEMP 36.3; O2SAT 97–99; BMI 30.4
[2023-09-09] MEDS: DEXTROSE 5%/LACTATED RINGERS 1,000 ML 999 ML IV CONT (15:26)
[2023-09-09] MEDS: ONDANSETRON INJ 4 MG/2 ML VIAL IV PUSH (15:29)
[2023-09-09 15:32] LABS: Alanine Aminotransferase 21 U/L (6-35); Albumin Level 3.8 g/dL (3.5-5.1); Alkaline Phosphatase 53 U/L (38-126); Anion Gap 7 mmol/L (4-12); Aspartate Amino Transferase 24 U/L (14-36); Bilirubin,Total 0.4 mg/dL (0.2-1.3); Blood Urea Nitrogen 10 mg/dL (7-17); Calcium 9.1 mg/dL (8.4-10.2); Carbon Dioxide 21 mmol/L (22-30); Chloride 107 mmol/L (98-107); Estimated Glomerular Filt Rate > 60; Glucose 91 mg/dL (65-110); Potassium 3.7 mmol/L (3.4-5.0); Sodium 135 mmol/L (137-145)
[2023-09-09 16:09] LABS: Appearance Urine Turbid (Clear); Bacteria Urine None Seen /hpf; Bilirubin Urine Negative (Negative); Blood Urine Negative (Negative); Color Urine Yellow (Yellow); Glucose Urine UA Negative (Negative); Ketones Urine Negative (Negative); Leukocyte Esterase Ur Negative LEU/UL (Negative); Nitrate Urine Negative (Negative); Non Pathogenic Casts 0-2; Protein Urine Negative (Negative); RBC Urine 0-2 /hpf (0-2); Specific Grav Ur 1.021 (1.001-1.035); Squamous Epithelial Cell Urine Occasional /hpf (Few); WBC Urine 0-5 /hpf (0-3); pH Urine 7.5 (5.0-9.0)
[2023-09-09 16:39] LABS: Add Urine Microscopic? YES
[2023-09-09] MEDS: ACETAMINOPHEN 500 MG TABLET 1000 MG PO (16:44)
--- NOTE | 2023-09-09 17:37 | PC.NURSE ---
Pt states her headache is much better since the Tylenol and she was able to drink a whole glass of water and nausea is a little better. No emesis. Informed pt that Dr. Peterson didn't order any more IV fluids since her labs were normal, and I have an order to discharge her any time she feels like she wants to go home. Pt would like to go home.
--- NOTE | 2023-09-14 15:18 | PM.OBTRLD ---
OB - Triage/Final Diagnosis Visit Information Comments/Additional reasons for admission: I have assessed the risk for this patient, Eduardo West, and determined that she would benefit from observation care. Evaluation Laboratory results: Laboratory Tests 09/09/23 15:14 Sodium 135 L Potassium 3.7 Chloride 107 Carbon Dioxide 21 L Anion Gap 7 BUN 10 D Creatinine 0.40 L Estim Creat Clear Calc Not Reportable Estimated GFR > 60 Glucose 91 Calcium 9.1 Total Bilirubin 0.4 AST 24 ALT 21 Alkaline Phosphatase 53 Total Protein 7.0 Albumin 3.8 Urine Color Yellow Urine Appearance Turbid H Urine pH 7.5 Ur Specific [place] 1.021 Urine Protein Negative Urine Glucose (UA) Negative Urine Ketones Negative Ur Blood (Man) Negative Urine Nitrate Negative Urine Bilirubin Negative Urine Urobilinogen 1.0 Leukocyte Esterase Rfl Negative Urine RBC 0-2 Urine WBC 0-5 Ur Squamous Epith Cells Occasional Urine Bacteria None seen Urine Casts 0-2 Final Diagnosis (1) Nausea/vomiting in : Code(s): O21.9 - Vomiting of , unspecified Status: Acute
== END 2023-09-09 17:54 | disposition home or self-care (01) ==
PROVIDERS: Admitting Provider Obstetrics & Gynecology; Visit Provider Obstetrics & Gynecology
DX: O21.9 Vomiting of pregnancy, unspecified (principal); Z3A.26 26 weeks gestation of pregnancy
CPT/HCPCS: 36415; 80053; 81001; 96361; 96374; A9270; G0378; G0379; J2405; J7121

== ENCOUNTER 2023-09-30 11:06 | Outpatient (CLI) | payer BC, SELFPAY ==
[2023-09-30 13:19] LABS: Basophils Percent Auto 0.2 % (0.2-1.2); Eosinophils Percent Auto 0.3 % (0-4.4); Hematocrit 38.8 % (37.0-47.0); Hemoglobin 12.8 g/dL (12.0-15.0); Immature Granulocyte Absolute 0.11 K/mm3 (0.00-0.031); Immature Granulocyte Percent A 0.9 % (0-0.5); Lymphocytes Absolute Auto 1.55 K/mm3 (0.9-3.2); Lymphocytes Percent Auto 12.1 % (18.3-44.2); Mean Corpuscular Hemoglobin 31.6 pg (26-34); Mean Corpuscular Volume 95.8 fl (80-100); Mean Platelet Volume 11.8 fl (7.4-10.4); Monocytes Absolute Auto 0.4 K/mm3 (0.1-0.6); Monocytes Percent Auto 3.3 % (2.6-8.5); Neutrophils Absolute Auto 10.6 K/mm3 (1.3-6.7); Neutrophils Percent Auto 83.2 % (45.5-73.1); Platelet Count Result 216 k/mm3 (150-375); Red Blood Count 4.05 M/mm3 (4.2-5.4); Red Cell Distribution Width 13.2 % (11.5-14.5); White Blood Count 12.8 K/mm3 (4.5-10.0)
[2023-09-30 13:32] LABS: Glucose 1 Hour PP 50gm Dose 141 mg/dL
[2023-09-30 14:10] LABS: HIV 1/2 Ab P24 Ag Result Negative (Negative)
== END 2023-09-30 11:07 | disposition home or self-care (01) ==
LOC: ANHLAB 11:09
PROVIDERS: Visit Provider Student in an Organized Health Care Education/Training Program
DX: Z34.90 Encounter for supervision of normal pregnancy, unspecified, unspecified trimester (principal); Z3A.00 Weeks of gestation of pregnancy not specified
CPT/HCPCS: 36415; 82947; 85025; 86703; G0432

== ENCOUNTER 2023-10-04 10:34 | Outpatient (CLI) | payer BC, SELFPAY ==
[2023-10-04 10:57] LABS: Glucose Fasting Gestational 105 mg/dL (>/=95)
[2023-10-04 12:28] LABS: Glucose 1 Hour Gest 192 mg/dL (>/=180)
[2023-10-04 13:36] LABS: Glucose 2 Hour Gest 119 mg/dL (>/= 155)
[2023-10-04 14:53] LABS: Glucose 3 Hour Gest 134 mg/dL (>/=140)
== END 2023-10-04 10:35 | disposition home or self-care (01) ==
LOC: ANHLAB 10:35
PROVIDERS: Visit Provider Student in an Organized Health Care Education/Training Program
DX: Z34.90 Encounter for supervision of normal pregnancy, unspecified, unspecified trimester (principal); Z3A.00 Weeks of gestation of pregnancy not specified
CPT/HCPCS: 36415; 82951; 82952

== ENCOUNTER 2023-10-14 15:10 | Observation (INO) | payer BC, SELFPAY ==
--- NOTE | ~2023-10-14 | US_ITS ---
EXAMINATION: US OB limited DATE: 10/14/2023 16:25 INDICATION: Vaginal spotting. Third trimester. Gestational diabetes. TECHNIQUE: Real-time ultrasound of the pelvis was performed. COMPARISON: Ultrasound 05/04/2023 FINDINGS: There is a single fetus in vertex presentation. The placenta is fundal. heart rate is 146 beat s per minute (bpm). The amniotic fluid index is 22.7 cm cm, which is normal. IMPRESSION: 1. Single living fetus in vertex presentation. 2. Normal placenta. Reviewed, dictated and finalized at location E.
[2023-10-14 15:34] VITALS: BP 117/80; PULSE 101
[2023-10-14 15:48] VITALS: BMI 31.4
--- NOTE | 2023-10-14 15:49 | OBADM ---
This patient, Eduardo West, admitted to the OB room OB Post 113 for observation. Patient/family oriented to hospital policies and general routines including ID bracelet, bed and alarms, visiting hours, pain management, procedures, bathroom and other care routines, personal items, smoking policy, room service/diet, and visiting hours. Patient/Family are encouraged to report perceived risks to care and to ask questions if they do not understand what they are told or what they should do.
[2023-10-14 16:20] VITALS: BP 113/74; PULSE 88
[2023-10-14 16:30] VITALS: BP 103/65; PULSE 87
--- NOTE | 2023-10-17 08:52 | PM.OBTRLD ---
OB - Triage/Final Diagnosis Visit Information Comments/Additional reasons for admission: I have assessed the risk for this patient, Eduardo West, and determined that she would benefit from observation care. Final Diagnosis (1) Vaginal bleeding: Code(s): N93.9 - Abnormal uterine and vaginal bleeding, unspecified Status: Acute
== END 2023-10-14 17:10 | disposition home or self-care (01) ==
PROVIDERS: Admitting Provider Obstetrics & Gynecology; Visit Provider Obstetrics & Gynecology
DX: O46.93 Antepartum hemorrhage, unspecified, third trimester (principal); Z3A.31 31 weeks gestation of pregnancy
CPT/HCPCS: 76815; G0378; G0379

== ENCOUNTER 2023-12-05 10:35 | Outpatient (RCR) | payer BC, SELFPAY ==
[2023-10-24 11:10] VITALS: BP 101/64; PULSE 95
[2023-10-28 11:28] VITALS: BP 100/65; PULSE 82
[2023-10-31 14:40] VITALS: BP 97/56; PULSE 75
[2023-11-04 11:09] VITALS: PULSE 69
[2023-11-04 11:15] VITALS: BP 114/66; PULSE 69
[2023-11-07 15:08] VITALS: BP 101/60; PULSE 88
[2023-11-11 12:16] VITALS: BP 101/61; PULSE 88
[2023-11-14 14:31] VITALS: BP 103/58; PULSE 68
[2023-11-18 14:49] VITALS: BP 115/72; PULSE 80
[2023-11-21 14:02] VITALS: BP 101/62; PULSE 95
[2023-11-25 12:02] VITALS: BP 97/55; PULSE 85
[2023-11-28 13:55] VITALS: BP 115/66; PULSE 96
[2023-12-02 12:52] VITALS: BP 103/60; PULSE 119
--- NOTE | 2023-12-02 13:13 | PM.OBTRLD ---
OB - Triage/Final Diagnosis Visit Information Date of evaluation: 12/02/23 Comments/Additional reasons for admission: I have assessed the risk for this patient, Eduardo West, and determined that she would benefit from observation care. Evaluation Baseline heart rate: 140 Variability: Average (6-10) monitor accelerations: Present monitor decelerations: None Comments: NST reactive; BPP was 4/8; off for tone and movement --- 6/10 which is equivocal. Per US tech, baby did not move for the entire 30 minutes. Per PT, she states that she didn't feel the baby move during US, but baby was moving before and is moving after the US. She had a growth US with MFM this morning; was told everything was normal, EFW 48%ile. Will monitor for 2 hours; if any heart decelerations, will start induction-- if reactive, will plan for repeat NST/BPP tomorrow AM. If repeat testing abnormal tomorrow, will be for IOL. Strict return precautions; if any concerns, decreased movement, etc, pt to return to L&D overnight. Pt states understanding.
[2023-12-03 08:49] VITALS: BP 110/68; PULSE 90
--- NOTE | ~2023-12-05 | US_ITS ---
EXAMINATION: US OB BPP wo non-stress DATE: 12/05/2023 12:34 INDICATION: Maternal gestational diabetes during third trimester TECHNIQUE: Real-time pelvic ultrasound was performed. The interpreting radiologist was not present fo r the study. COMPARISON: None. FINDINGS: There is a single living fetus in vertex presentation. The placenta is fundal. heart rate is 1 28 beats per minute (bpm). Amniotic fluid volume is subjectively normal with normal deepest vertical pocket measuring 5.1 cm. Incidentally noted are bilateral hydroceles. Also noted is a dilated r enal pelvis measuring 7-8 mm. The contralateral kidney is not identified on the provided images. Ian nal view of the nose and lips is normal. Biophysical profile performed by the technologist: breathing (30 sec sustained breathing in 30 minutes): 2 out of 2 movement (3 gross body movements in 30 minutes): 2 out of 2 tone (one episode of nkuxptq-ysntycehh-xpxirjp limb movement): 2 out of 2 Amniotic fluid pocket (2 cm): 2 out of 2 Total score: 8 out of 8 IMPRESSION: 1. Single living fetus in vertex presentation with heart rate of 128 bpm. 2. Biophysical profile 8 out of 8. 3. Incidentally noted bilateral hydroceles and a dilated renal pelvis identified on the provided imag es. Reviewed, dictated and finalized at location A. IMPRESSION: 1. Single living fetus in vertex presentation with heart rate of 128 bpm. 2. Biophysical profile 8 out of 8. 3. Incidentally noted bilateral hydroceles and a dilated renal pelvis identifie d on the provided images.
--- NOTE | ~2023-12-05 | US_ITS ---
EXAMINATION: US OB BPP wo non-stress DATE: 10/28/2023 12:15 INDICATION: Gestational diabetes. Third trimester. TECHNIQUE: Real-time pelvic ultrasound was performed. COMPARISON: Ultrasound 10/14/2023 FINDINGS: There is a single living fetus in vertex presentation. The placenta is fundal. heart rate is 1 40 beats per minute (bpm). The cervical length is 4.5 cm on transabdominal images, which is normal. T he amniotic fluid index is 10.5 cm, which is normal. Biophysical profile performed by the technologist: breathing (30 sec sustained breathing in 30 minutes): 2 out of 2 movement (3 gross body movements in 30 minutes): 2 out of 2 tone (one episode of bbvnxek-ozysiyhgd-lfueidp limb movement): 2 out of 2 Amniotic fluid pocket (2 cm): 2 out of 2 Total score: 8 out of 8 IMPRESSION: 1. Single living fetus in vertex presentation. 2. Biophysical profile 8 out of 8. Reviewed, dictated and finalized at location A.
--- NOTE | ~2023-12-05 | US_ITS ---
EXAMINATION: US OB BPP wo non-stress DATE: 11/18/2023 14:46 INDICATION: Gestational diabetes TECHNIQUE: Real-time pelvic ultrasound was performed. The interpreting radiologist was not present fo r the study. COMPARISON: None. FINDINGS: There is a single living fetus in vertex presentation. The placenta is fundal. cardiac activit y and movement are demonstrated. heart rate is 143 beats per minute (bpm). Biophysical profile performed by the technologist: breathing (30 sec sustained breathing in 30 minutes): 2 out of 2 movement (3 gross body movements in 30 minutes): 2 out of 2 tone (one episode of idonzjh-sbodhneyl-txrbbeu limb movement): 2 out of 2 Amniotic fluid pocket (2 cm): 2 out of 2 Total score: 8 out of 8 IMPRESSION: 1. Single living intrauterine in vertex presentation with heart rate of 143 bpm. 2. Normal placenta. 3. Biophysical profile 8 out of 8. Reviewed, dictated and finalized at location B.
--- NOTE | ~2023-12-05 | US_ITS ---
EXAMINATION: US OB BPP wo non-stress DATE: 12/02/2023 12:46 INDICATION: Gestational diabetes. Third trimester. TECHNIQUE: Real-time pelvic ultrasound was performed. COMPARISON: Ultrasound 11/17/2023 FINDINGS: There is a single living fetus in vertex presentation. The placenta is fundal. heart rate is 1 37 beats per minute (bpm). Biophysical profile performed by the technologist: breathing (30 sec sustained breathing in 30 minutes): 2 out of 2 movement (3 gross body movements in 30 minutes): 0 out of 2 tone (one episode of mtnhwas-domyhtryx-mnzvycu limb movement): 0 out of 2 Amniotic fluid pocket (2 cm): 2 out of 2 Total score: 4 out of 8 IMPRESSION: 1. Single living fetus in vertex presentation. 2. Biophysical profile 4 out of 8. Reviewed, dictated and finalized at location A.
--- NOTE | ~2023-12-05 | US_ITS ---
EXAMINATION: US OB BPP wo non-stress DATE: 12/03/2023 09:12 INDICATION: Gestational diabetes. Third trimester. TECHNIQUE: Real-time pelvic ultrasound was performed. COMPARISON: Ultrasound 12/02/2023 FINDINGS: There is a single living fetus in vertex presentation. The placenta is fundal. heart rate is 1 33 beats per minute (bpm). Biophysical profile performed by the technologist: breathing (30 sec sustained breathing in 30 minutes): 2 out of 2 movement (3 gross body movements in 30 minutes): 2 out of 2 tone (one episode of noykipy-npkubhlle-zichgdr limb movement): 2 out of 2 Amniotic fluid pocket (2 cm): 2 out of 2 Total score: 8 out of 8 IMPRESSION: 1. Single living fetus in vertex presentation. 2. Biophysical profile 8 out of 8. Reviewed, dictated and finalized at location A.
--- NOTE | ~2023-12-05 | US_ITS ---
EXAMINATION: US OB BPP wo non-stress DATE: 11/04/2023 11:31 INDICATION: Gestational diabetes. Third trimester. TECHNIQUE: Real-time pelvic ultrasound was performed. COMPARISON: Ultrasound 10/28/2023 FINDINGS: There is a single living fetus in vertex presentation. The placenta is posterior and fundal. h eart rate is 136 beats per minute (bpm). Biophysical profile performed by the technologist: breathing (30 sec sustained breathing in 30 minutes): 2 out of 2 movement (3 gross body movements in 30 minutes): 2 out of 2 tone (one episode of ppssdho-pyangqqmv-vkhdkrt limb movement): 2 out of 2 Amniotic fluid pocket (2 cm): 2 out of 2 Total score: 8 out of 8 IMPRESSION: 1. Single living fetus in vertex presentation. 2. Biophysical profile 8 out of 8. Reviewed, dictated and finalized at location A.
--- NOTE | ~2023-12-05 | US_ITS ---
EXAMINATION: US OB BPP wo non-stress DATE: 11/25/2023 12:38 INDICATION: Gestational diabetes. Third trimester. TECHNIQUE: Real-time pelvic ultrasound was performed. COMPARISON: Ultrasound 11/18/2023 FINDINGS: There is a single living fetus in vertex presentation. The placenta is fundal. heart rate is 1 35 beats per minute (bpm). Biophysical profile performed by the technologist: breathing (30 sec sustained breathing in 30 minutes): 2 out of 2 movement (3 gross body movements in 30 minutes): 2 out of 2 tone (one episode of kwcblou-otlyzzioh-ufkpofd limb movement): 2 out of 2 Amniotic fluid pocket (2 cm): 2 out of 2 Total score: 8 out of 8 IMPRESSION: 1. Single living fetus in vertex presentation. 2. Biophysical profile 8 out of 8. Reviewed, dictated and finalized at location A.
--- NOTE | ~2023-12-05 | US_ITS ---
EXAMINATION: US OB BPP wo non-stress DATE: 11/11/2023 11:31 INDICATION: Maternal gestational diabetes during third trimester TECHNIQUE: Real-time pelvic ultrasound was performed. The interpreting radiologist was not present fo r the study. COMPARISON: None. FINDINGS: There is a single living fetus in vertex presentation. The placenta is fundal. heart rate is 1 36 beats per minute (bpm). Normal left ventricular and right ventricular outflow tract views were obt ained. Biophysical profile performed by the technologist: breathing (30 sec sustained breathing in 30 minutes): 2 out of 2 movement (3 gross body movements in 30 minutes): 2 out of 2 tone (one episode of fswabdx-lloiolklo-taskira limb movement): 2 out of 2 Amniotic fluid pocket (2 cm): 2 out of 2 Total score: 8 out of 8 IMPRESSION: 1. Single living fetus in vertex presentation with heart rate of 136 bpm. 2. Biophysical profile 8 out of 8. Reviewed, dictated and finalized at location A.
[2023-12-05 11:18] VITALS: BP 99/51; PULSE 91
== END 2024-01-09 23:59 | disposition home or self-care (01) ==
LOC: ANHOBOP 10:35
PROVIDERS: Visit Provider Student in an Organized Health Care Education/Training Program
DX: O24.419 Gestational diabetes mellitus in pregnancy, unspecified control (principal); Z3A.32 32 weeks gestation of pregnancy; Z3A.33 33 weeks gestation of pregnancy; Z3A.35 35 weeks gestation of pregnancy; Z3A.36 36 weeks gestation of pregnancy; Z3A.37 37 weeks gestation of pregnancy; Z3A.38 38 weeks gestation of pregnancy; Z3A.39 39 weeks gestation of pregnancy; Z71.89 Other specified counseling
CPT/HCPCS: 59025; 76819; G0108

== ENCOUNTER 2023-12-07 16:08 | Inpatient (IN) | payer BC, SELFPAY ==
[2023-12-07] VITALS (100 sets, daily range): BP systolic 94–127; BP diastolic 55–109; PULSE 77–107; TEMP 36.8–37; O2SAT 91–100; BMI 31.7
[2023-12-07 17:02] LABS: Basophils Percent Auto 0.1 % (0.2-1.2); Eosinophils Percent Auto 0.1 % (0-4.4); Hematocrit 40.1 % (37.0-47.0); Hemoglobin 13.3 g/dL (12.0-15.0); Immature Granulocyte Absolute 0.05 K/mm3 (0.00-0.031); Immature Granulocyte Percent A 0.4 % (0-0.5); Lymphocytes Absolute Auto 1.37 K/mm3 (0.9-3.2); Lymphocytes Percent Auto 11.9 % (18.3-44.2); Mean Corpuscular HGB Conc 33.2 g/dl (32-36); Mean Corpuscular Hemoglobin 31.2 pg (26-34); Mean Corpuscular Volume 94.1 fl (80-100); Mean Platelet Volume 12.3 fl (7.4-10.4); Monocytes Absolute Auto 0.4 K/mm3 (0.1-0.6); Monocytes Percent Auto 3.8 % (2.6-8.5); Neutrophils Absolute Auto 9.7 K/mm3 (1.3-6.7); Neutrophils Percent Auto 83.7 % (45.5-73.1); Platelet Count Result 177 k/mm3 (150-375); Red Blood Count 4.26 M/mm3 (4.2-5.4); Red Cell Distribution Width 13.8 % (11.5-14.5); White Blood Count 11.6 K/mm3 (4.5-10.0)
[2023-12-07] MEDS: DINOPROSTONE 10 MG VAG INSERT VAGINAL (17:02)
[2023-12-07] MEDS: LACTATED RINGERS 1,000 ML 125 ML IV CONT (17:16)
[2023-12-07] MEDS: AMPICILLIN 2 GM/NS 100 ML 2 GM/100 ML BAG IVPB (17:18)
--- NOTE | 2023-12-07 17:20 | LDADM ---
This patient, Eduardo West, was admitted to Labor/Delivery/Recovery 108 on 12/07/23 at 16:08. Plans for labor, pain management and were discussed with patient. Patient/family oriented to hospital policies and general routines including ID bracelet, bed and alarms, visiting hours, pain management, procedures, bathroom and other care routines, personal items, smoking policy, room service/diet and guest tray routines, security routines, and visiting hours. Patient/Family are encouraged to report perceived risks to care and to ask questions if they do not understand what they are told or what they should do. See OBIX for further documentation.
[2023-12-07 17:54] LABS: HIV 1/2 Ab P24 Ag Result Negative (Negative)
[2023-12-07 18:16] LABS: Glucose Point of Care 73 mg/dl (65-105)
[2023-12-07] MEDS: FAMOTIDINE 10 MG TABLET PO (20:52)
[2023-12-07] MEDS: METOCLOPRAMIDE HCL 10 MG TABLET PO (20:52)
[2023-12-07] MEDS: AMPICILLIN 1 GM/NS 50 ML 1 GM/50 ML BAG IVPB (21:30)
[2023-12-07 22:17] LABS: Glucose Point of Care 78 mg/dl (65-105)
[2023-12-08] VITALS (252 sets, daily range): BP systolic 77–154; BP diastolic 37–93; PULSE 55–260; RESP 18; TEMP 36.1–37.2; O2SAT 81–100
[2023-12-08] MEDS: AMPICILLIN 1 GM/NS 50 ML 1 GM/50 ML BAG IVPB ×3 (01:30→09:13)
[2023-12-08 01:44] LABS: Glucose Point of Care 78 mg/dl (65-105)
[2023-12-08] MEDS: OXYTOCIN 30 UNITS/NS 500 ML 30 UNITS/500 ML BAG IV CONT (05:15)
[2023-12-08 05:25] LABS: Glucose Point of Care 92 mg/dl (65-105)
[2023-12-08] MEDS: ACETAMINOPHEN 500 MG TABLET 1000 MG PO (06:42)
[2023-12-08 06:51] LABS: Glucose Point of Care 97 mg/dl (65-105)
[2023-12-08] MEDS: LACTATED RINGERS 1,000 ML 125 ML IV CONT ×2 (08:00→11:11)
[2023-12-08 10:11] LABS: Glucose Point of Care 101 mg/dl (65-105)
[2023-12-08 13:46] LABS: Rapid Plasma Reagin Non-Reactive (NonReactive)
[2023-12-08] MEDS: OXYTOCIN 30 UNITS/NS 500 ML 30 UNITS/500 ML BAG 125 UNITS IV CONT (14:00)
--- NOTE | 2023-12-08 14:02 | WPDHPUPDATE1 ---
History and Physical Update Update Date/Time: 12/08/23 14:02 History and Physical has been reviewed, including an updated exam of the patient. There are NO changes in the patient's condition. Risks, benefits, and alternatives have been discussed and questions answered. Patient agrees to proceed with procedure.
--- NOTE | 2023-12-08 14:02 | PM.OBPRVD ---
OB - Vaginal Delivery Note Procedure Delivery date: 12/08/23 Events: Gestational Diabetes and Other ( hyperemesis) Induction method: Per Cervidil Protocol Delivery augmentation: Rupture of Membranes and Pitocin Delivery monitor: External FHT and External Uterine Route of delivery: Episiotomy description: None Laceration Description: Vaginal Delivery repair: chromic Specimen: Yes Quantitative Blood Loss (ml): 200 Anesthesia type: Epidural Disposition: Floor Complications: No immediate complications Narrative: patient prepped and draped in usual manner this procedure. Maternal expulsive efforts readily delivered vertex, rest of baby without difficulty. Cord clamped cut and placenta delivered spontaneously. Uterus was well contracted. Cervix vagina vulva were inspected with a small vaginal laceration noted. This was closed as it was bleeding using 3-0 chromic in running interlocking manner with good approximation hemostasis noted. Uterus was well contracted and immediate postoperative condition of mother and baby both excellent. At this point the procedure was considered terminated. [place] Baby Weeks of gestation at delivery: 39 gender: Male presentation: vertex Placenta delivery description: Spontaneous Cord Vessel Description: 3 Vessels
--- NOTE | 2023-12-08 14:07 | WPDANESEPPF ---
Anes - Initial Pre Proc Eval Procedure: labor epidural Date/Time: 12/08/23 14:07 Surgeon: Aleksandr Hernandez MD Pre Op Diagnosis: labor pain Pre Op Diagnosis: Induction of Labor Patient Data Age: 28 Gender: F Height: 1.65 m Weight: 86.5 kg Last Vital Signs Temp 36.3 C L 12/08/23 12:33 Pulse 80 12/08/23 14:06 BP 102/58 L 12/08/23 14:06 Pulse Ox 100 12/08/23 14:05 O2 Del Method Room Air 12/07/23 17:33 Allergies Allergy/AdvReac Type Severity Reaction Status Date / Time promethazine [From Phenergan] AdvReac Intermediate Hallucinati Verified 12/07/23 17:40 ng Home Medications Medication Instructions Recorded Confirmed Type doxylamine succinate 25 mg tablet 12.5 mg PO HS PRN nausea 04/28/23 12/07/23 History (Unisom (doxylamine)) famotidine 20 mg tablet (Pepcid) 20 mg PO BID 05/13/23 12/07/23 History hydroxyzine pamoate 50 mg capsule 50 mg PO QHS PRN Nausea at bedtime 06/16/23 12/07/23 History vits no.126-ferrous fum 1 tablet PO DAILY 08/03/23 12/07/23 History 28 mg iron-folic acid 800 mcg tablet (Classic ) acetaminophen 500 mg tablet 1,000 mg PO Q6H PRN pain 1-3 or 09/09/23 12/07/23 Rx headache pyridoxine (vitamin B6) 50 mg 50 mg PO TID 09/09/23 12/07/23 History tablet glyburide 2.5 mg tablet 2.5 mg PO DAILY #90 tabs 10/19/23 12/07/23 Rx scopolamine base 1 mg over 3 days 1 patch transdermal Q3D #4 ea 11/07/23 12/07/23 Rx transdermal patch docusate sodium 50 mg capsule 50 mg PO BID 11/18/23 12/05/23 History metoclopramide HCl 10 mg tablet See Rx Instructions .Route 11/30/23 12/07/23 Rx .COMPLEX #30 tabs Laboratory Tests 12/07/23 12/07/23 12/07/23 16:34 18:12 22:13 WBC 11.6 H K/mm3 (4.5-10.0) RBC 4.26 M/mm3 (4.2-5.4) Hgb 13.3 g/dL (12.0-15.0) Hct 40.1 % (37.0-47.0) MCV 94.1 fl (80-100) MCH 31.2 pg (26-34) MCHC 33.2 g/dl (32-36) RDW 13.8 % (11.5-14.5) Plt Count 177 k/mm3 (150-375) MPV 12.3 H fl (7.4-10.4) Immature Gran % (Auto) 0.4 % (0-0.5) Neut % (Auto) 83.7 H % (45.5-73.1) Lymph % (Auto) 11.9 L % (18.3-44.2) [place] % (Auto) 3.8 % (2.6-8.5) Eos % (Auto) 0.1 % (0-4.4) Baso % (Auto) 0.1 L % (0.2-1.2) Lymph # (Auto) 1.37 K/mm3 (0.9-3.2) [place] # (Auto) 0.4 K/mm3 (0.1-0.6) Eos # (Auto) 0.0 K/mm3 (0-0.3) Baso # (Auto) 0.0 K/mm3 (0.0-0.1) Abs Immat Gran (auto) 0.05 H K/mm3 (0.00-0.031) Absolute Neuts (auto) 9.7 H K/mm3 (1.3-6.7) Absolute Nucleated RBC 0.000 K/mm3 (0.0-0.012) Nucleated RBC % 0.0 % (0.0-0.2) POC Capillary Glucose 73 mg/dl 78 mg/dl (65-105) (65-105) RPR Non-reactive (NonReactive) HIV 1&2 Ab/P24 Ag 4thGn Negative (Negative) Blood Type A Positive Antibody Screen Negative 12/08/23 12/08/23 12/08/23 01:37 05:19 06:48 WBC RBC Hgb Hct MCV MCH MCHC RDW Plt Count MPV Immature Gran % (Auto) Neut % (Auto) Lymph % (Auto) [place] % (Auto) Eos % (Auto) Baso % (Auto) Lymph # (Auto) [place] # (Auto) Eos # (Auto) Baso # (Auto) Abs Immat Gran (auto) Absolute Neuts (auto) Absolute Nucleated RBC Nucleated RBC % POC Capillary Glucose 78 mg/dl 92 mg/dl 97 mg/dl (65-105) (65-105) (65-105) RPR HIV 1&2 Ab/P24 Ag 4thGn Blood Type Antibody Screen 12/08/23 10:09 WBC RBC Hgb Hct MCV MCH MCHC RDW Plt Cou
[2023-12-08] MEDS: BENZOCAINE 20% AER SPR (*SP) 56 GM CAN 1 SPRAY TOPICAL (17:34)
[2023-12-08] MEDS: WITCH HAZEL 40 PADS 1 PAD TOPICAL (17:34)
--- NOTE | 2023-12-08 17:43 | PC.NURSE ---
Patient transferred to post room #279 via (W/C). Support person present. Oriented to unit, room, information board, rooming in, admission packet and security measures. Patient verbalizes understanding.
[2023-12-08] MEDS: DOCUSATE SODIUM LIQ 100 MG/10 ML UDC 50 MG PO (20:00)
[2023-12-08] MEDS: IBUPROFEN 600 MG TABLET PO (20:00)
[2023-12-08] MEDS: FAMOTIDINE 20 MG TABLET PO (20:00)
[2023-12-08] MEDS: METOCLOPRAMIDE HCL 10 MG TABLET PO (23:09)
[2023-12-08] MEDS: ACETAMINOPHEN 325 MG TABLET 650 MG PO (23:14)
[2023-12-09 01:22] VITALS: BP 103/58; PULSE 93; RESP 18; TEMP 36.9; O2SAT 96
[2023-12-09 06:09] LABS: Hematocrit 33.8 % (37.0-47.0); Hemoglobin 11.3 g/dL (12.0-15.0)
[2023-12-09 07:20] VITALS: BP 91/52; PULSE 67; RESP 16; TEMP 36.4; O2SAT 99
--- NOTE | 2023-12-09 07:52 | PM.OBDSVD ---
DS: Admitting Diagnosis Discharge Date 12/10/2023 Admitting Diagnosis DS: Discharge Diagnosis Discharge Diagnosis (1) , delivered: Code(s): O80 - Encounter for full-term uncomplicated delivery Status: Acute OB - DS: Summary OB Procedures : None OB Procedures Intrapartum: Spontaneous Vag Delivery OB Procedures: : None Peripartum Data Laceration Description: Vaginal Episiotomy description: None Time Spent with Patient Time attestation: Total time spent providing and/or coordinating discharge services: DS: Data Data Completed and Pending Pending studies at discharge: Pending at discharge 12/08/23 14:08 Surgical [PTH] Routine Labs on day of discharge: Labs from last 24 hours 12/09/23 12/08/23 12/07/23 05:55 10:09 16:34 Hgb 11.3 L Hct 33.8 L POC Capillary Glucose 101 RPR Non-reactive Discharge Plan Discharge Discharging Clinician: Aleksandr Hernandez Patient Disposition: Home, Self-Care Activity: as tolerated, follow weight bearing status and pelvic rest Diet: as tolerated Patient Instructions: Antibiotic Form Stand Alone Forms: General Discharge Information Follow-up/Referrals: Aleksandr Hernandez MD [Physician] - 3 Weeks Discharge Medications: New sertraline [Zoloft] 50 mg Tablet 50 mg PO QAM Qty: 90 0RF ibuprofen 600 mg Tablet 600 mg PO Q6H PRN (Reason: Cramping) Qty: 30 0RF Continued Unisom (doxylamine) 25 mg Tablet 12.5 mg PO HS PRN (Reason: nausea) famotidine [Pepcid] 20 mg tablet 20 mg PO BID hydroxyzine pamoate 50 mg capsule 50 mg PO QHS PRN (Reason: Nausea at bedtime) Classic 28 mg iron- 800 mcg tablet 1 tablet PO DAILY pyridoxine (vitamin B6) 50 mg Tablet 50 mg PO TID acetaminophen 500 mg Tablet 1,000 mg PO Q6H PRN (Reason: pain 1-3 or headache) 0RF Colace 50 mg Capsule 50 mg PO BID glyburide 2.5 mg tablet 2.5 mg PO DAILY Qty: 90 1RF scopolamine base 1 mg over 3 days patch 3 day 1 patch transdermal Q3D Qty: 4 1RF metoclopramide HCl 10 mg tablet See Rx Instructions .ROUTE .COMPLEX Qty: 30 1RF Dose Instruction: TAKE 1 TABLET BY MOUTH EVERY 8 HOURS Rx Instructions: TAKE 1 TABLET BY MOUTH EVERY 8 HOURS Date of admission: 12/07/23 16:08 Primary Care Provider: UNKNOWN,DOCTOR Admitting Provider: Aleksandr Hernandez Attending physician on admission: Aleksandr Hernandez Condition: Stable
--- NOTE | 2023-12-09 07:56 | WPDANLDPN2 ---
Anes-Prog Note L&D Date/Time: 12/09/23 07:56 Comfortable throughout: labor and delivery Neuraxial method: epidural Epidural/Spinal procedure site: tender Neuro status: Neuro function grossly intact. Cardiovascular status: normal Respiratory status: normal Airway patency: baseline Mental status: baseline Post-Op hydration status: normal Vital Signs: Last Vital Signs Temp 36.9 C 12/09/23 01:22 Pulse 93 12/09/23 01:22 Resp 18 12/09/23 01:22 BP 103/58 L 12/09/23 01:22 Pulse Ox 96 12/09/23 01:22 O2 Del Method Room Air 12/07/23 17:33 Pain score (VAS): 3/10 I/O: Intake & Output 12/08/23 12/08/23 12/09/23 15:59 23:59 07:59 Intake Total 1000 Output Total 300 25 Balance 700 -25 Post-procedural complaints: none Patient feedback: Patient satisfied with anesthetic care.
[2023-12-09] MEDS: IBUPROFEN 600 MG TABLET PO ×3 (08:33→21:32)
[2023-12-09] MEDS: ACETAMINOPHEN 325 MG TABLET 650 MG PO ×2 (08:34→14:45)
[2023-12-09] MEDS: PYRIDOXINE HCL 50 MG TABLET PO ×2 (08:36→14:47)
[2023-12-09] MEDS: SERTRALINE HCL 50 MG TABLET PO (08:36)
[2023-12-09] MEDS: MULTIVIT/MIN/PREN/FOL AC/IRON TABLET 1 TAB PO (08:36)
[2023-12-09] MEDS: SIMETHICONE 80 MG TAB.CHEW PO (08:36)
[2023-12-09] MEDS: METOCLOPRAMIDE HCL 10 MG TABLET PO ×2 (08:37→21:32)
[2023-12-09] MEDS: DOCUSATE SODIUM LIQ 100 MG/10 ML UDC 50 MG PO (08:38)
--- NOTE | 2023-12-09 09:10 | PC.NURSE ---
Mother verbalizes she is able to independently latch with appropriate positioning and alignment. She is still occasionally her 2 1/2 year old daughter. She denies any nipple discomfort (other than initial latch on soreness) and is responsively . Infant is currently meeting outcomes for weight, output, jaundice, blood sugar and feeding frequencies of 8-12 times in 24 hours. Mother declines any additional assistance or education at this time, but knows to call out for a latch check today. Mother is encouraged to call for assistance if her infant doesn?t latch, pain with latching, questions or concerns. Mother voiced understanding of information shared along with the mom/baby guide for an additional resource. Reported to the Primary RN.
[2023-12-09 11:52] VITALS: BP 101/64; PULSE 71; RESP 16; TEMP 36.7; O2SAT 98
--- NOTE | 2023-12-09 15:45 | PC.NURSE ---
Mother verbalizes she is able to independently latch with appropriate positioning and alignment. She denies any nipple discomfort and is responsively . She latched infant to the left breast in cradle hold. had a wide open mouth and mother states the latch feels good. She has initial latch on tenderness that goes away, but no pain or pinching throughout the feeding. is currently meeting outcomes for weight, output, jaundice, blood sugar and feeding frequencies of 8-12 times in 24 hours. Mother declines any additional assistance or education at this time. Mother is encouraged to call for assistance if her infant doesn?t latch, pain with latching, questions or concerns. Mother voiced understanding of information shared along with the mom/baby guide for an additional resource. Reported to the Primary RN.
[2023-12-09 20:00] VITALS: BP 106/58; PULSE 84; RESP 16; TEMP 36.9
[2023-12-09] MEDS: ACETAMINOPHEN 500 MG TABLET 1000 MG PO (21:33)
[2023-12-10] MEDS: IBUPROFEN 600 MG TABLET PO (08:23)
[2023-12-10] MEDS: METOCLOPRAMIDE HCL 10 MG TABLET PO (08:23)
[2023-12-10] MEDS: ACETAMINOPHEN 325 MG TABLET 650 MG PO (08:24)
[2023-12-10] MEDS: DOCUSATE SODIUM LIQ 100 MG/10 ML UDC 50 MG PO (08:25)
[2023-12-10] MEDS: MULTIVIT/MIN/PREN/FOL AC/IRON TABLET 1 TAB PO (08:25)
[2023-12-10] MEDS: SERTRALINE HCL 50 MG TABLET PO (08:25)
[2023-12-10] MEDS: PYRIDOXINE HCL 50 MG TABLET PO (08:25)
[2023-12-10 08:30] VITALS: BP 106/68; PULSE 71; RESP 18; TEMP 37.1; O2SAT 98
--- NOTE | 2023-12-10 11:50 | PC.NURSE ---
Consulted with mother concerning needs and she shared her ability to independently latch infant optimally without pain. Mother is feeding appropriately for growth of and understands stimulating to eat if needed. Infant has had appropriate feedings in the last 24 hours meets the outcomes for weight, output, blood sugar and jaundice at this time. Reinforced understanding of milk production, transition of milk, signs of adequate intake, transition of stool, prevention/relief of engorgement, plugged ducts, mastitis, responsive watching for feeding cues, the different methods of stimulating to breastfeed 1-3 hours after the start of the last feeding, community resources, and when to call a provider using the resource of the feeding sheet along with the mom and baby guide. Mom would like a latch check before discharge, she will call out when she feeds. Mother voiced understanding of the information shared, is confident to continue effectively her at home, when to call for assistance, denies any additional assistance or education at this time. Reported to the Primary RN.
--- NOTE | 2023-12-10 13:30 | PC.NURSE ---
0810- Mother called out for a latch check. Infant was sleepy after the circumcision and mother worked very well with him to wake him up. She latched him independently in football on the right breast. He had a wide open mouth in an asymmetrical latch. Discussed signs of a deep latch with mother and how to adjust or relatch if it is painful or doesn't feel right . was feeding excellently and mother states she feels confident to continue independently at home. Reviewed ways to know is adequately , including output, jaundice, and weight. Also discussed tandem nursing with moms other child. The toddler breastfeeds a few times a day and may continue to do so, as long as infants feeding needs are met first. Mother has the team contact information and has no further questions or needs at this time.
[2023-12-12 10:51] VITALS: BP 110/67; PULSE 77; RESP 18; TEMP 37; O2SAT 98
== END 2023-12-10 14:15 | disposition home or self-care (01) | DRG 806 ==
LOC: ANHLDR 12-08 14:23 → ANHOB2 12-08 17:44
PROVIDERS: Admitting Provider Obstetrics & Gynecology; Visit Provider Obstetrics & Gynecology
DX: O24.429 Gestational diabetes mellitus in childbirth, unspecified control (principal); O71.4 Obstetric high vaginal laceration alone; Z37.0 Single live birth; Z3A.39 39 weeks gestation of pregnancy; O99.824 Streptococcus B carrier state complicating childbirth
CPT/HCPCS: 36415; 82948; 85014; 85018; 85025; 86592; 86703; 86850; 86900; 86901; 88307; A9270; G0432; J0290; J2590; J2795; J7120